=== PATIENT | female | born 1950 | race Caucasian/White ===

== ENCOUNTER 2021-03-12 21:27 | Inpatient (IN) | payer MEDICARE, SELFPAY ==
[2021-03-12] VITALS (9 sets, daily range): BP systolic 116–183; BP diastolic 69–126; PULSE 90–125; RESP 14–28; TEMP 34.9–35.4; O2SAT 96–100; BMI 29.9
--- NOTE | 2021-03-12 21:40 | EKG12_ITS ---
Test Reason : ARREST Blood Pressure : / mmHG Vent. Rate : 114 BPM Atrial Rate : 114 BPM P-R Int : 148 ms QRS Dur : 094 ms QT Int : 354 ms P-R-T Axes : 087 032 240 degrees QTc Int : 487 ms Sinus tachycardia with occasional Premature ventricular complexes Indeterminate axis Marked ST abnormality, possible inferior subendocardial injury Marked ST abnormality, possible anterolateral subendocardial injury Abnormal ECG Confirmed by MEAGHAN ROSS, MARY ([id number]), manager editorial MEL MURGUIA ([id number]) on 03/16/2021 1:45:16 PM Referred By: TRACY Confirmed By:MARY HARDING MD
[2021-03-12 21:58] LABS: Bacteria 0 SEEN /hpf (None Seen); Mucous, Urine 0 SEEN /hpf (<or=2+); White Blood Cells 0 SEEN /hpf (0-5)
[2021-03-12 22:01] LABS: Glucose, Dipstick Normal (Normal); Ketone-Dipstick Negative (Negative); Leukocyte Esterase-Dipstick Negative /ul (Negative); Nitrite-Dipstick Negative (Negative); Occult Blood-Urine 150 /ul (Negative); Protein-Dipstick 100 mg/dl (Negative); Specific Gravity, Urine 1.025 (1.002-1.030); Urine Bilirubin Dipstick Negative (Negative); Urine Clarity Sl. Cloudy (Clear); Urine Urobilinogen Normal (Normal)
--- NOTE | 2021-03-12 22:01 | CM.ED ---
SOCIAL WORK Code Bob Responded to code. Patient's son and present in waiting room and escorted to room. Emotional support provided. Kamila Karimi, FLORAL CLERK, PELLETIZER TENDER
[2021-03-12 22:05] LABS: Hematocrit 39.1 % (37-47); Hemoglobin 12.3 g/dL (12.0-15.0); Mean Corp Hgb Conc 31.5 g/dL (32-36); Mean Corpuscular Volume 95.4 fL (81-99); POSITIVE MORPHOLOGY YES; Platelet Count 201 K/mm3 (150-450); RBC Distribution Width CV 13.5 % (11.6-14.6); RBC Distribution Width SD 47.8 fl (35.1-43.9); White Blood Count 9.3 K/mm3 (4.4-11.0)
[2021-03-12 22:07] LABS: Color, Urine YELLOW (Yellow)
[2021-03-12 22:08] LABS: Amorphous Sediment 1+ URATE; Red Blood Cells-Urine 25-50 SEEN /hpf (0-5); Squamous Epithelial Cells - UA 0-5 SEEN /hpf (5-10)
[2021-03-12] MEDS: Propofol 10MG/Ml 1,000 MG/100 ML Bottle 4.9 MG CONT INF (22:08)
[2021-03-12 22:11] LABS: International Normalized Ratio 1.1
[2021-03-12 22:12] LABS: Partial Thromboplast Time 35.2 Seconds (24.1-36.2)
[2021-03-12 22:17] LABS: ALB/GLOB Ratio 1.1 RATIO (0.9-2.4); AST(SGOT) 231 U/L (15-37); Alanine Aminotransfer ALT/SGPT 218 U/L (13-56); Albumin, Serum 3.5 g/dL (3.2-5.0); Alkaline Phosphatase 72 U/L (45-117); Anion Gap 16 (5-15); BUN 18 mg/dL (7-18); BUN/Creat Ratio 12.6 RATIO (10-20); Calcium,Total 8.9 mg/dL (8.5-10.1); Chloride 105 mmol/L (98-107); Creatinine, Serum 1.43 mg/dL (0.55-1.02); EST Glomerular Filtration Rate 38 mL/min (>60); Est Glom Filt Rate - Afr Amer 47 mL/min (>60); Estimated Creatinine Clearance 32.47 ml/min; Globulin 3.3 g/dL (2.2-4.2); Glucose 260 mg/dL (74-106); Potassium 2.9 mmol/L (3.5-5.1); Protein, Total 6.8 g/dL (6.4-8.2); Sodium Level 141 mmol/L (136-145)
[2021-03-12 22:22] LABS: Differential Indicated MANUAL DIFF
[2021-03-12 22:26] LABS: Neutrophil-Band 18 % (0-5); Neutrophil-Segmented 22 % (47-70); Total Cells Counted 100 (MANUAL DIFF)
[2021-03-12 22:27] LABS: Eosinophil 2 % (0-5); Lymphocyte 48 % (19-41); Metamyelocyte 1 % (0-1); Monocyte 4 % (0-10); Myelocyte 4 % (0-0); Promyelocyte 1 % (0-0)
[2021-03-12 22:29] LABS: Absolute Lymphocyte Count 4.44 X10^3/uL (0.83-4.51); Absolute Neutrophil Count 3.7 X10^3/uL (2.0-7.7)
[2021-03-12 22:31] LABS: Allen Test Positive; Base Excess -8 mmol/L (-2 to +2); Bicarbonate 19.3 mmol/L (22-26); Blood Gas Specimen Type ART; FI02 80; Mode AC; O2 Delivery Device Adult Vent; PEEP 5; PO2 101 mmHG (75-100); RR 14; SITE L Radial; SO2 97 % (95-99); Total Carbon Dioxide 21 mmol/L; Vt 480; pCO2 43.1 mmHg (35-45); pH 7.26 (7.35-7.45)
[2021-03-12 22:32] LABS: Platelet Estimate ADEQUATE (ADEQ); Reactive Lymphocyte 1+
[2021-03-12 22:33] LABS: Red Cell Morphology NORM C+C NORMAL (NORM C&C)
[2021-03-12 22:41] LABS: Lactic Acid 8.3 mmol/L (0.4-1.9)
--- NOTE | 2021-03-12 22:51 | CT_ITS ---
STUDY: CT BRAIN WITHOUT CONTRAST REASON FOR EXAM: Female, 71 years old. Altered mental status RADIATION DOSAGE (If Supplied By Facility): CTDIvol = ( 44.99 ) mGy, DLP = ( 796.11 ) mGycm TECHNIQUE: Transaxial CT imaging of the brain was performed without administration of intravenous contrast material. Individualized dose optimization techniques were used for this CT. COMPARISON: No relevant priors. FINDINGS: Normal soft tissue structures. Normal calvarium. There is mild cerebral atrophy with widening of the extra-axial spaces and ventricular dilatation. There are areas of decreased attenuation within the white matter tracts of the supratentorial brain, consistent with microvascular disease changes. Normal basal ganglia and thalami. Normal brainstem. Normal cerebellum. There is no intracranial hemorrhage. There are no findings of an acute ischemic infarction. Partially empty sella Normal visualized paranasal sinuses. CT/Brain/Head without Contrast IMPRESSION: Chronic involutional changes of the brain. Electronically Signed: Jeffry Fan DO at 23:02 EDT Tel , Service support ,
--- NOTE | 2021-03-12 23:00 | RAD_ITS ---
STUDY: X-RAY CHEST REASON FOR EXAM: Female, 71 years old. Intubation TECHNIQUE: Single AP portable view of the chest. COMPARISON: None. FINDINGS: There is hyperinflation of the lungs consistent with chronic obstructive lung disease (COPD). Patchy airspace disease in the right upper lobe suggesting infection. No consolidation or effusions. ET tube terminating 4 cm from the fatoumata. Enteric tube in the stomach RAD/Chest 1 View (Portable) IMPRESSION: ET tube and enteric tube are noted and adequately positioned. Patchy infiltrate in the right upper lobe suggesting infection Electronically Signed: Jeffry Fan DO at 23:46 EDT Tel , Service support ,
--- NOTE | 2021-03-12 23:54 | EX.ED.CRITCA ---
HPI History of Present Illness Chief Complaint: CPR Informant: family and EMS Limited: coma Onset/Context/Timing Onset: Today Context: Sudden Onset Timing: Continuous Mechanism/Context: Yes unknown and Yes other Narrative Narrative: Patient presents after cardiac arrest that occurred tonight. Patient was planting keen in her son's garden tonight when she collapsed. Son called 911 immediately and started CPR. EMS was able to resuscitate the patient had the patient had a pulse and good blood pressure upon arrival to the emergency department. Patient was still unresponsive and nonverbal on arrival. Prior similar symptoms: No PFSH PFSH no medical history (Per ) Home Medications NK 03/12/21 [History Last Taken Unknown] Allergy/AdvReac Type Severity Reaction Status Date / Time codeine Allergy Other Verified 03/12/21 21:33 no surgical history (Per ) Social History Smoking Status: Never smoker ROS ROS ED Review of Systems ROS Unobtainable: due to endotracheal tube and due to mental status EXAM Physical Exam Const Vital Signs: 03/12/21 21:28 03/12/21 21:29 03/12/21 21:34 Temperature 95.8 F L Temperature Source Temporal Pulse Rate 108 H 125 H Respiratory Rate 28 H 24 H Respiratory Effort Agonal Respiratory Depth Shallow Respiratory Pattern Blood Pressure 183/117 H Blood Pressure Mean 139 Pulse Ox 100 100 Oxygen Delivery Method Ambu-Bag Oxygen Flow Rate (L/min) 15 Fraction of Inspired Oxygen (FIO2) 80 03/12/21 21:53 03/12/21 21:58 03/12/21 22:13 Temperature 95.5 F L Temperature Source Core Pulse Rate 90 Respiratory Rate 25 H Respiratory Effort Agonal Respiratory Depth Respiratory Pattern Apnea Blood Pressure 164/73 H Blood Pressure Mean 103 Pulse Ox 100 100 Oxygen Delivery Method Mechanical Ventilator Mechanical Ventilator Oxygen Flow Rate (L/min) Fraction of Inspired Oxygen (FIO2) 03/12/21 22:28 03/12/21 23:00 03/12/21 23:16 Temperature Temperature Source Pulse Rate 97 98 98 Respiratory Rate 18 18 24 H Respiratory Effort Respiratory Depth Respiratory Pattern Blood Pressure 153/69 H 116/74 Blood Pressure Mean 97 88 Pulse Ox 100 100 96 Oxygen Delivery Method Mechanical Ventilator Mechanical Ventilator Oxygen Flow Rate (L/min) Fraction of Inspired Oxygen (FIO2) 80 03/12/21 23:30 03/12/21 23:42 Temperature 94.9 F L Temperature Source Core Pulse Rate 100 Respiratory Rate 19 H Respiratory Effort Respiratory Depth Respiratory Pattern Blood Pressure 140/126 H 133/82 H Blood Pressure Mean 130 99 Pulse Ox 100 Oxygen Delivery Method Mechanical Ventilator Oxygen Flow Rate (L/min) Fraction of Inspired Oxygen (FIO2) Positive well nourished and well developed General Appearance ED: well developed HEENT normocephalic and atraumatic Neck no JVD Resp Resp Narrative: Breath sounds are equal bilaterally with mechanical ventilation. Cardio regular rate and regular rhythm GI non-distended Palpation: soft Neuro Luxor Coma Scale: document GCS findings None None None 3 Sensorium / Orientation: sedated on vent Skin Lesions: no lesions Rashes: no rashes MDM MDM MDM Narrative Medical decision making narrative: The I gel airway was removed. Patient was intubated with 7.5 ET tube without sedation using a glide scope. The tube was visualized passing through the cords. Breath sounds were equal bilaterally after intubation. There is good color change on end-tidal CO2 monitor. There is condensation in the tube. EKG was obtained. On my interpretation, it showed a sinus tachycardia with a rate of 114. There is ST depression in leads II, III, aVF, and V3 through V6. I was able to text this to the hvac maintenance technician. Since the patient was unconscious upon arrival, he does not feel the patient needs to go emergently to the [facility]. CT scan of the brain was obtained. There is no acute intracranial abnormality. This was interpreted by the radiologist and reviewed by myself. Portable 1 view chest x-ray was obtained. On my interpretation, lung sanchez showed right-sided infiltrate. This is likely from aspiration. There is normal cardiac silhouette. Bony thorax is normal. Radiologist also interpreted the x-ray and agrees. CBC shows a normal white blood cell count however, there were 18 bands and 48 lymphocytes. PT with INR and PTT were normal. Comprehensive metabolic profile showed a hypokalemia of 2.9. CO2 was 20. Creatinine was slightly elevated at 1.43. Anion gap was slightly elevated at 16. Lactate was elevated at 8.3. Troponin was elevated at 0.107. Urinalysis was essentially within normal limits. Patient was started on Unasyn. Patient was also started on fentanyl and propofol drips. Case was discussed with the hospitalist. He will admit the patient to ICU. Family understood and was agreeable with the plan. All questions were answered. Lab Data Attestation: I reviewed the patient's lab results. Labs: Laboratory Results - last 24 hr 03/12/21 03/12/21 03/12/21 21:30 21:30 21:30 WBC 9.3 RBC 4.10 L Hgb 12.3 Hct 39.1 MCV 95.4 MCH 30.0 MCHC 31.5 L RDW Std Deviation 47.8 H RDW Coeff of [place] 13.5 Plt Count 201 MPV 11.0 Neut % (Auto) Not Reportable Absolute Neuts (auto) 3.7 Absolute Lymphs (auto) 4.44 Total Counted 100 Neutrophils % (Manual) 22 L Band Neutrophils % 18 H Lymphocytes % (Manual) 48 H Monocytes % (Manual) 4 Eosinophils % (Manual) 2 Metamyelocytes % 1 Myelocytes % 4 H Promyelocytes % 1 H Diff Path Review May foll Reactive Lymphocytes 1+ Platelet Estimate ADEQUATE RBC Morphology NORM C+C PT 14.0 INR 1.1 APTT 35.2 Sodium 141 Potassium 2.9 L Chloride 105 Carbon Dioxide 20.0 L Anion Gap 16 H BUN 18 Creatinine 1.43 H Estim Creat Clear Calc 32.47 Est GFR (MDRD) Af Amer 47 L Est GFR (MDRD) Non-Af 38 L BUN/Creatinine Ratio 12.6 Glucose 260 H Lactic Acid Calcium 8.9 Total Bilirubin 0.40 AST 231 H ALT 218 H Alkaline Phosphatase 72 Troponin I 0.107 H Total Protein 6.8 Albumin 3.5 Globulin 3.3 Albumin/Globulin Ratio 1.1 Urine Color Urine Clarity Urine pH Ur Specific [place] Urine Protein Urine Glucose (UA) Urine Ketones Urine Occult Blood Urine Nitrite Urine Bilirubin Urine Urobilinogen Ur Leukocyte Esterase Urine RBC Urine WBC Ur Squamous Epith Cells Amorphous Sediment Urine Bacteria Urine Mucus 03/12/21 03/12/21 21:50 22:00 WBC RBC Hgb Hct MCV MCH MCHC RDW Std Deviation RDW Coeff of [place] Plt Count MPV Neut % (Auto) Absolute Neuts (auto) Absolute Lymphs (auto) Total Counted Neutrophils % (Manual) Band Neutrophils % Lymphocytes % (Manual) Monocytes % (Manual) Eosinophils % (Manual) Metamyelocytes % Myelocytes % Promyelocytes % Diff Path Review Reactive Lymphocytes Platelet Estimate RBC Morphology PT INR APTT Sodium Potassium Chloride Carbon Dioxide Anion Gap BUN Creatinine Estim Creat Clear Calc Est GFR (MDRD) Af Amer Est GFR (MDRD) Non-Af BUN/Creatinine Ratio Glucose Lactic Acid 8.3 H* Calcium Total Bilirubin AST ALT Alkaline Phosphatase Troponin I Total Protein Albumin Globulin Albumin/Globulin Ratio Urine Color YELLOW Urine Clarity Sl. Cloudy Urine pH 5.0 Ur Specific [place] 1.025 Urine Protein 100 H Urine Glucose (UA) Normal Urine Ketones Negative Urine Occult Blood 150 H Urine Nitrite Negative Urine Bilirubin Negative Urine Urobilinogen Normal Ur Leukocyte Esterase Negative Urine RBC 25-50 SEEN Urine WBC 0 SEEN Ur Squamous Epith Cells 0-5 SEEN Amorphous Sediment 1+ URATE Urine Bacteria 0 SEEN Urine Mucus 0 SEEN ABG Data ABG results: ABG 03/12/21 22:25 Specimen Type ART Sample Site L Radial pH 7.26 L Bicarbonate Actual 19.3 L Total CO2 21 Base Excess -8 L O2 Saturation 97 O2 % 80 ABG pCO2 43.1 ABG pO2 101 H Tk Test Positive Respiration Rate 14 O2 Delivery Device Adult Vent Vent Mode AC Tidal Volume 480 POC PEEP 5 Radiography Chest X-Ray - ED: 1 View, Read by ED Physician, Read by Radiologist and Right Infiltrate Diagnostic Testing: Radiology Impression Brain CT 03/12/21 22:51 IMPRESSION: Chronic involutional changes of the brain. Electronically Signed: Jeffry Fan DO at 23:02 EDT Tel , Service support , Chest X-Ray 03/12/21 23:00 IMPRESSION: ET tube and enteric tube are noted and adequately positioned. Patchy infiltrate in the right upper lobe suggesting infection Electronically Signed: Jeffry Fan DO at 23:46 EDT Tel , Service support , EKG Initial EKG: Attestation: I personally reviewed and interpreted this EKG as follows: Interpretation: Sinus Tachycardia (114) and S-T Depression Prior EKG tracings: not available for review Treatment and Re-Evaluation Vital Sign Attestation:: Vital signs were reviewed prior to admission. Blood pressure remained stable. Patient is slightly tachycardic. Patient is attempting to breathe over the ventilator at 28 times per minute. Critical Care Time Critical Care Time: Yes Critical care time (excluding procedures): 30-74 minutes (42 minutes), Discussing w/Patient &/or Family/Appraiser Art, Discussing w/Consultants, Arranging Admission or Transfer and Performing Direct Patient Care at Bedside Discharge Plan Dx/Rx/DC Orders Clinical Impression: Cardiac arrest, Aspiration pneumonia, Lactic acidosis, Acute hypokalemia, Elevated troponin Disposition Disposition: Acute Care Hospital [facility]
[2021-03-13] VITALS (41 sets, daily range): BP systolic 91–154; BP diastolic 29–82; PULSE 67–106; RESP 14–28; TEMP 35.7–38.5; O2SAT 95–100; BMI 25.7
--- NOTE | 2021-03-13 00:22 | HP.PCM.HOS_ITS ---
HPI - General General Date of Admission: 03/13/21 Date of Service: 03/13/21 Chief Complaint: CPR. HPI Narrative SLIME WAGNER, is a 71 F with no significant past medical history presented to the emergency room by squad after she collapsed, found to have no pulse and CPR was initiated. At this time, patient is intubated and on mechanical ventilation and also she is sedated. She is not able to provide any history. Patient's family including , daughter and son were at the bedside. According to the patient's son, patient was gardening last evening and her normal health and her son asked her to get back to the house as it was started to rain. Son mentioned that he went inside and after around 5 minutes, dog barked and he went outside and he found his mom on the floor. Son started CPR and he called the squad. Upon squad arrival, patient had no pulse, CPR initiated and he was able to get her pulse back. Patient had no past medical history. She takes no medications at home. Currently, she is intubated, on mechanical ventilation. She is afebrile, blood pressure stable, heart rate stable, on mechanical ventilation. Routine blood work was remarkable for potassium of 2.9, creatinine of 1.43, blood glucose was 260. Lactic acid was 8.3. LFT revealed elevated liver transaminases. EKG revealed sinus tachycardia with PVCs, ST segment depression and T wave inversion on leads V3, V4 and V5, ST segment depression in leads II and III. Troponin is 0.107. CT scan brain showed no acute findings. Chest x- ray revealed right upper lobe haziness/patchy infiltrate. She is being admitted for acute respiratory failure after CPR, aspiration pneumonia, lactic acidosis, hypokalemia, abnormal EKG with abnormal cardiac enzymes. [facility], [facility] no medical history Home Medications NK 03/12/21 [History Last Taken Unknown] Allergy/AdvReac Type Severity Reaction Status Date / Time codeine Allergy Other Verified 03/12/21 21:33 no significant family history no surgical history Social History (Updated 03/13/21 @ 00:[address] Windy Yates MD) Smoking Status: Never smoker alcohol intake: never ROS Review of Systems ROS Unobtainable: due to endotracheal tube Vital Signs Vital Signs Vital Signs: 03/12/21 21:28 03/12/21 21:29 03/12/21 21:34 Temperature 95.8 F L Temperature Source Temporal Pulse Rate 108 H 125 H Respiratory Rate 28 H 24 H Respiratory Effort Agonal Respiratory Depth Shallow Respiratory Pattern Blood Pressure 183/117 H Blood Pressure Mean 139 Pulse Ox 100 100 Oxygen Delivery Method Ambu-Bag Oxygen Flow Rate (L/min) 15 Fraction of Inspired Oxygen (FIO2) 80 03/12/21 21:53 03/12/21 21:58 03/12/21 22:13 Temperature 95.5 F L Temperature Source Core Pulse Rate 90 Respiratory Rate 25 H Respiratory Effort Agonal Respiratory Depth Respiratory Pattern Apnea Blood Pressure 164/73 H Blood Pressure Mean 103 Pulse Ox 100 100 Oxygen Delivery Method Mechanical Ventilator Mechanical Ventilator Oxygen Flow Rate (L/min) Fraction of Inspired Oxygen (FIO2) 03/12/21 22:28 03/12/21 23:00 03/12/21 23:16 Temperature Temperature Source Pulse Rate 97 98 98 Respiratory Rate 18 18 24 H Respiratory Effort Respiratory Depth Respiratory Pattern Blood Pressure 153/69 H 116/74 Blood Pressure Mean 97 88 Pulse Ox 100 100 96 Oxygen Delivery Method Mechanical Ventilator Mechanical Ventilator Oxygen Flow Rate (L/min) Fraction of Inspired Oxygen (FIO2) 80 03/12/21 23:30 03/12/21 23:42 Temperature 94.9 F L Temperature Source Core Pulse Rate 100 Respiratory Rate 19 H Respiratory Effort Respiratory Depth Respiratory Pattern Blood Pressure 140/126 H 133/82 H Blood Pressure Mean 130 99 Pulse Ox 100 Oxygen Delivery Method Mechanical Ventilator Oxygen Flow Rate (L/min) Fraction of Inspired Oxygen (FIO2) Weight Weight: 180 lb Body Mass Index (BMI) 29.9 Physical Exam Const Constitutional Narrative: Sedated. General Appearance: intubated and patient mechanically ventilated HEENT normocephalic, moist oral mucous membranes and oropharynx normal Eyes PERRL and conjunctivae normal General Eye: normal appearance of both eyes Neck no lymphadenopathy, supple and no JVD Resp Resp Narrative: Decreased breath sounds bilateral, otherwise clear. Auscultation: clear to auscultation bilaterally; Negative for rales, rhonchi or wheezes Cardio regular rate, regular rhythm, S1 normal heart sound and S2 normal heart sound Cardio Narrative: Tachycardia. GI normal to inspection, nondistended, normoactive bowel sounds, soft to palpation, non-tender and hepatosplenomegaly Extremity normal to inspection, full ROM and no clubbing, cyanosis or edema Skin no rashes or lesions noted and skin turgor normal Neuro Neuro Narrative: Sedated, on mechanical ventilation. Moving all limbs. Comatose: corneal reflex present Psych Psych Narrative: Unable to assess, patient is sedated. Lab / Micro Data Result Diagrams: 03/12/21 21:30 03/12/21 21:30 Labs: Laboratory Results - last 24 hr 03/12/21 03/12/21 03/12/21 21:30 21:30 21:30 WBC 9.3 RBC 4.10 L Hgb 12.3 Hct 39.1 MCV 95.4 MCH 30.0 MCHC 31.5 L RDW Std Deviation 47.8 H RDW Coeff of [place] 13.5 Plt Count 201 MPV 11.0 Neut % (Auto) Not Reportable Absolute Neuts (auto) 3.7 Absolute Lymphs (auto) 4.44 Total Counted 100 Neutrophils % (Manual) 22 L Band Neutrophils % 18 H Lymphocytes % (Manual) 48 H Monocytes % (Manual) 4 Eosinophils % (Manual) 2 Metamyelocytes % 1 Myelocytes % 4 H Promyelocytes % 1 H Diff Path Review May foll Reactive Lymphocytes 1+ Platelet Estimate ADEQUATE RBC Morphology NORM C+C PT 14.0 INR 1.1 APTT 35.2 Sodium 141 Potassium 2.9 L Chloride 105 Carbon Dioxide 20.0 L Anion Gap 16 H BUN 18 Creatinine 1.43 H Estim Creat Clear Calc 32.47 Est GFR (MDRD) Af Amer 47 L Est GFR (MDRD) Non-Af 38 L BUN/Creatinine Ratio 12.6 Glucose 260 H Lactic Acid Calcium 8.9 Total Bilirubin 0.40 AST 231 H ALT 218 H Alkaline Phosphatase 72 Troponin I 0.107 H Total Protein 6.8 Albumin 3.5 Globulin 3.3 Albumin/Globulin Ratio 1.1 Urine Color Urine Clarity Urine pH Ur Specific [place] Urine Protein Urine Glucose (UA) Urine Ketones Urine Occult Blood Urine Nitrite Urine Bilirubin Urine Urobilinogen Ur Leukocyte Esterase Urine RBC Urine WBC Ur Squamous Epith Cells Amorphous Sediment Urine Bacteria Urine Mucus 03/12/21 03/12/21 21:50 22:00 WBC RBC Hgb Hct MCV MCH MCHC RDW Std Deviation RDW Coeff of [place] Plt Count MPV Neut % (Auto) Absolute Neuts (auto) Absolute Lymphs (auto) Total Counted Neutrophils % (Manual) Band Neutrophils % Lymphocytes % (Manual) Monocytes % (Manual) Eosinophils % (Manual) Metamyelocytes % Myelocytes % Promyelocytes % Diff Path Review Reactive Lymphocytes Platelet Estimate RBC Morphology PT INR APTT Sodium Potassium Chloride Carbon Dioxide Anion Gap BUN Creatinine Estim Creat Clear Calc Est GFR (MDRD) Af Amer Est GFR (MDRD) Non-Af BUN/Creatinine Ratio Glucose Lactic Acid 8.3 H* Calcium Total Bilirubin AST ALT Alkaline Phosphatase Troponin I Total Protein Albumin Globulin Albumin/Globulin Ratio Urine Color YELLOW Urine Clarity Sl. Cloudy Urine pH 5.0 Ur Specific [place] 1.025 Urine Protein 100 H Urine Glucose (UA) Normal Urine Ketones Negative Urine Occult Blood 150 H Urine Nitrite Negative Urine Bilirubin Negative Urine Urobilinogen Normal Ur Leukocyte Esterase Negative Urine RBC 25-50 SEEN Urine WBC 0 SEEN Ur Squamous Epith Cells 0-5 SEEN Amorphous Sediment 1+ URATE Urine Bacteria 0 SEEN Urine Mucus 0 SEEN ABG Data ABG results: ABG 03/12/21 22:25 Specimen Type ART Sample Site L Radial pH 7.26 L Bicarbonate Actual 19.3 L Total CO2 21 Base Excess -8 L O2 Saturation 97 O2 % 80 ABG pCO2 43.1 ABG pO2 101 H Tk Test Positive Respiration Rate 14 O2 Delivery Device Adult Vent Vent Mode AC Tidal Volume 480 POC PEEP [address] 03/12/21 22:51 IMPRESSION: Chronic involutional changes of the brain. Electronically Signed: Jeffry Fan DO at 23:02 EDT Tel , Service support , Chest X-Ray 03/12/21 23:00 IMPRESSION: ET tube and enteric tube are noted and adequately positioned. Patchy infiltrate in the right upper lobe suggesting infection Electronically Signed: Jeffry Fan DO at 23:46 EDT Tel , Service support , Assessment & Plan Assessment/Plan (1) Abnormal EKG: (2) Cardiac arrest: (3) Aspiration pneumonia: (4) Lactic acidosis: (5) Acute hypokalemia: (6) Elevated troponin: PLAN: This is a 71 years old female patient presented to the emergency room after she collapsed on the floor, went into asystole, status post CPR and she was found to have multiorgan failure probably due to cardiac event and found to have aspiration pneumonia, acute kidney injury, abnormal EKG with abnormal troponin. #1 status post CPR: Unclear reason for the cardiopulmonary arrest, probably due to cardiac event. EKG reviewed as above, does have new EKG changes, no old EKG to compare. Troponin is 0.107. Chest x-ray reviewed as above. Currently, patient is maintaining her blood pressure, on mechanical ventilation. Plan: Admit to ICU, complete bedrest, continue vent management per protocol, critical care monitoring, IV fluids, critical care consult, cardiology consult, 2D echocardiogram, repeat CBC and CMP tomorrow morning. #2 abnormal EKG/abnormal cardiac enzymes: EKG revealed sinus tachycardia with PVCs, ST segment depression and T wave inversions in leads V3, V4 and V5, ST segment depression in leads II and III. Patient had no cardiac history, no di abetes or hypertension. Troponin is 0.107. Plan: Cardiac monitoring, serial cardiac enzymes, repeat EKG tomorrow morning, 2D echocardiogram, rectal aspirin, cardiology consult. #3 aspiration pneumonia: Chest x-ray reviewed. Reportedly, patient vomited during the CPR and probably she aspirated. She is afebrile, no leukocytosis. Plan: Start IV Unasyn, aspiration precautions. #4 acute kidney injury: Due to cardiac arrest. Plan: IV fluids, input output chart, repeat BMP tomorrow morning. #5 lactic acidosis: It is probably due to tissue hypoperfusion and hypoxemia. I doubt sepsis or severe sepsis. Plan for IV fluids, blood culture, repeat lactic acid in 3 hours. #6 elevated LFT: Likely due to shock liver due to tissue hypoperfusion. Plan to monitor, repeat CMP tomorrow morning. #7 hypokalemia: Replace with potassium chloride IV, check serum magnesium. #8 DVT prophylaxis: Subcu heparin. This note was generated with Sync[employer] dictation software. It may contain incorrect words, spelling, and punctuation that were not noted in checking the note before signing. Visit Charges Inpatient E&M: 84787 Init Hosp L3
--- NOTE | 2021-03-13 00:44 | ECHOCS_ITS ---
Reason For Study: Abn EKG Procedure This was a 2D Doppler, Color Flow transthoracic echocardiogram. Contrast injection was performed. Exam performed portable in ICU/CCU. Left Ventricle Mildly dilated left ventricle. The estimated ejection fraction is EF 40% %. Right Ventricle Normal right ventricle. Normal systolic function. Atria Normal left atrium. Normal right atrium. Mitral Valve The mitral valve is structurally normal. No prolapse or stenosis seen. Mild (1+) mitral valve insufficiency. Tricuspid Valve Normal tricuspid valve. Mild tricuspid valve insufficiency. Aortic Valve Normal aortic valve. Pulmonic Valve The pulmonic valve is not well visualized. Great Vessels Normal aortic root. Pericardium/Pleural Trivial pericardial effusion. Medication Diluted definity 2ml given slow IV push to enhance endocardial definition. MMode/2D Measurements & Calculations LVIDd: 4.1 cm IVSd: 1.1 cm Ao root diam: 2.6 cm LVIDs: 3.3 cm LVPWd: 1.1 cm RVDd: 3.1 cm FS: 20.6 % LAV(MOD-bp): 26.0 ml LVAd ap4: 26.7 cm2 SV(MOD-sp4): 33.7 ml LAV(MOD-bp) Indexed: 13.7 ml/m2 LVLd ap4: 6.9 cm LAV(MOD-sp2): 33.1 ml EDV(MOD-sp4): 83.5 ml LAV(MOD-sp4): 19.2 ml EDV(sp4-el): 87.1 ml LVAs ap4: 19.5 cm2 LVLs ap4: 6.2 cm ESV(MOD-sp4): 49.8 ml ESV(sp4-el): 52.2 ml EF(MOD-sp4): 40.3 % EF(sp4-el): 40.1 % SV(sp4-el): 35.0 ml LA A4 area: 10.0 cm2 LA dimension(2D): 3.8 cm RA A4 area: 11.1 cm2 Doppler Measurements & Calculations MV E max jonn: 50.5 cm/sec Lat Peak E' Jonn: 3.7 cm/sec Med Peak E' Jonn: 3.0 cm/sec MV A max jonn: 94.1 cm/sec E/E' lat: 13.5 E/E' med: 17.0 MV E/A: 0.54 Ao V2 max: 119.2 cm/sec LV V1 max: 84.1 cm/sec PA V2 max: 76.6 cm/sec Ao max P.7 mmHg LV V1 max P.8 mmHg Ao V2 mean: 85.5 cm/sec Ao mean P.2 mmHg Ao V2 VTI: 22.6 cm TR max jonn: 224.6 cm/sec TR max P.2 mmHg ECHO/Echo Complete W/ Contrast Interpretation Summary The estimated ejection fraction is EF 40% %. Infero-lateral Hypokinesia Ordering Physician: Windy Yates Referring Physician: Krishan Evans Performed By: Abbey Hernández, QUEENIE, RVT
[2021-03-13] MEDS: Aspirin 300 MG Suppository RC (02:01)
[2021-03-13] MEDS: 0.9% Normal Saline 1,000 ML 100 ML IV (02:01)
[2021-03-13 02:02] LABS: Reflex Lactate? Y
[2021-03-13 02:18] LABS: Cholesterol 240 mg/dL (200); High Density Lipoprotein 57 mg/dL; Magnesium 1.9 mg/dL (1.6-2.6); Thyroid Stim Hormone (TSH) 2.63 uIU/mL (0.358-3.74); Triglycerides 141 mg/dL; Very Low Density Lipoprotein 28 mg/dL (5-40)
[2021-03-13 04:22] LABS: Absolute Lymphocyte Count 0.22 X10^3/uL (0.83-4.51); Basophil# 0.01 X10^3/uL; Basophil% 0.2 % (0-1); Hemoglobin 9.1 g/dL (12.0-15.0); Lymphocyte # 0.22 X10^3/ul (0.83-4.51); Lymphocyte % 3.9 % (19-41); Mean Corp Hgb Conc 31.4 g/dL (32-36); Mean Corpuscular Hgb 29.4 pg (27.0-32.0); Mean Corpuscular Volume 93.9 fL (81-99); Mean Platelet Vol. 10.4 fl (6.2-12.0); Monocyte# 0.34 X10^3/uL; NRBC Flagged by Analyzer 0 % (0-5); Neutrophil # 5.03 X10^3/uL (2.7-7.7); Neutrophil % 89.5 % (47-70); POSITIVE DIFFERENTIAL YES; Platelet Count 147 K/mm3 (150-450); RBC Distribution Width CV 13.6 % (11.6-14.6); RBC Distribution Width SD 46.8 fl (35.1-43.9); Red Blood Count 3.09 M/mm3 (4.2-5.4); White Blood Count 5.6 K/mm3 (4.4-11.0)
[2021-03-13 04:24] LABS: Differential Indicated SCAN CRITERIA MET
[2021-03-13 05:08] LABS: Lactic Acid 4.9 mmol/L (0.4-1.9)
[2021-03-13 05:09] LABS: ALB/GLOB Ratio 1.2 RATIO (0.9-2.4); AST(SGOT) 164 U/L (15-37); Alanine Aminotransfer ALT/SGPT 136 U/L (13-56); Albumin, Serum 2.2 g/dL (3.2-5.0); Alkaline Phosphatase 41 U/L (45-117); Anion Gap 8 (5-15); BUN 14 mg/dL (7-18); BUN/Creat Ratio 27.8 RATIO (10-20); Calcium,Total 5.6 mg/dL (8.5-10.1); Chloride 122 mmol/L (98-107); EST Glomerular Filtration Rate 128 mL/min (>60); Est Glom Filt Rate - Afr Amer 155 mL/min (>60); Estimated Creatinine Clearance 44.56 ml/min; Globulin 1.9 g/dL (2.2-4.2); Glucose 121 mg/dL (74-106); Potassium 2.3 mmol/L (3.5-5.1); Protein, Total 4.1 g/dL (6.4-8.2); Sodium Level 149 mmol/L (136-145)
[2021-03-13 05:26] LABS: Differential Comment SCANNED
--- NOTE | 2021-03-13 05:55 | EKG12_ITS ---
Test Reason : AM EKG Blood Pressure : / mmHG Vent. Rate : 074 BPM Atrial Rate : 074 BPM P-R Int : 134 ms QRS Dur : 084 ms QT Int : 484 ms P-R-T Axes : 075 067 183 degrees QTc Int : 537 ms Normal sinus rhythm ST & T wave abnormality, consider inferior ischemia ST & T wave abnormality, consider anterolateral ischemia Prolonged QT Abnormal ECG Confirmed by JEANIE ROSS, ELISABET ([id number]), society editor MLE MURGUIA ([id number]) on 03/17/2021 1:16:21 PM Referred By: WAN Confirmed By:ELISABET WAER MD
[2021-03-13] MEDS: Ondansetron 4 MG/2 ML Vial IV (06:22)
[2021-03-13] MEDS: Heparin Injection (Vial) 5,000 UNIT/ML VIAL 5000 UNIT SC ×3 (06:24→22:15)
--- NOTE | 2021-03-13 06:25 | NURSING ---
While this RN at bedside administering AM meds, pt began to vomit around ETT; face and mouth cleaned, gown changed; pt began to raise both arms and grind teeth on ETT and then proceeded into having full tonic/clonic seizure activity; called to bedside, order received to give 2mg Ativan STAT IVP, LifePak monitor applied to pt as HR climbs to 150; FiO2 increased to 100% by at end of seizure d/t p.ox dropping into 70s. Pt postictal, repeat EKG obtained.
--- NOTE | 2021-03-13 06:43 | TELEMED_ITS ---
[facility] Telemed has confirmed receipt of a request for visit. This document confirms receipt of the order initiating the consult. To find the results of the consultation, please view the patient's reports for the scanned Telemed Consult.
--- NOTE | 2021-03-13 06:44 | EKG12_ITS ---
Test Reason : RHYTHM CHANGE Blood Pressure : / mmHG Vent. Rate : 099 BPM Atrial Rate : 099 BPM P-R Int : 144 ms QRS Dur : 092 ms QT Int : 384 ms P-R-T Axes : 079 065 194 degrees QTc Int : 492 ms Normal sinus rhythm ST & T wave abnormality, consider inferior ischemia ST & T wave abnormality, consider anterolateral ischemia Prolonged QT Abnormal ECG When compared with ECG of 13-MAR-2021 05:23, MANUAL COMPARISON REQUIRED, DATA IS UNCONFIRMED Confirmed by MEAGHAN ROSS, MARY ([id number]), commercial production editor MEL MURGUIA ([id number]) on 03/18/2021 12:45:49 PM Referred By: GALILEO Confirmed By:MARY HARDING MD
[2021-03-13] MEDS: LORazepam 2 MG/ML Syringe IV (06:46)
--- NOTE | 2021-03-13 06:50 | CON.PCM.CC_ITS ---
Assessment & Plan Assessment/Plan (1) Acute respiratory failure: PLAN: RECOMMENDATIONS: 1. Continue patient on assist control mode of mechanical ventilation and wean FiO2 to maintain oxygen saturations at or above 90%. 2. Maintain seizure precautions along with as needed Ativan. 3. Obtain EEG and neurology consultation. 4. Obtain repeat arterial blood gas and sputum culture. 5. Continue antimicrobials. 6. Echocardiogram is pending. Continue to trend troponins. 7. Discontinue normal saline and transition to D5W. 8. Aggressive potassium repletion. 9. Continue to avoid sedating medications. IMPRESSIONS: 1. Acute hypoxemic respiratory failure status post cardiac arrest The patient suffered an out of hospital cardiac arrest with bystander CPR with return of spontaneous circulation achieved while in route to the hospital. The patient was emergently intubated as a consequence of the aforementioned. However, there is concern for the interval development of aspiration pneumonia. Accordingly, the patient will be continued on antimicrobials along with invasive mechanical ventilatory support. Plan to wean FiO2 to maintain oxygen saturations at or above 90%. Cardiology consultation along with echocardiogram is pending. 2. Encephalopathy/new onset seizures Initial concern for possible anoxic brain injury. The patient did demonstrate generalized tonic-clonic seizure activity this morning, which was treated with Ativan. EEG is pending. The patient will also be evaluated by neurology. Continue to hold all sedating medications for now. 3. Aspiration pneumonia The patient was noted by EMS to have possibly aspirated. In addition, the patient also had a witnessed aspiration event in the ICU. There is an infiltrate in the patient's right upper lobe, concerning for aspiration pneumonia. Plan to continue antimicrobials as ordered. Will obtain sputum culture as well. 4. Acute kidney injury Likely prerenal in etiology with ischemic ATN secondary to the patient's acute presenting event. Plan to continue current supportive measures. Continue to monitor urine output for now. No current indication for renal replacement therapy. 5. Acute liver injury Likely related to the patient's acute presenting event. Coags are within normal limits. Continue to monitor liver function for now. 6. Hypernatremia/hypokalemia Electrolyte repletion as ordered. Recheck levels in the morning. Plan to transition the patient from normal saline to D5W with potassium supplementation. TIME: 48 minutes of critical care time, independent of procedures, was spent addressing the patient's acute hypoxemic respiratory failure status post cardiac arrest, encephalopathy, new onset seizures, aspiration pneumonia, acute kidney and liver injury, review of all data and collaboration with the care team. ([id number]) HPI Consult Data Date of Consult: 03/13/21 HPI Narrative Reason for Consultation: Acute respiratory failure status post cardiac arrest HPI Narrative: The patient is a 71-year-old female, with a history as outlined below, who presented to the emergency department on March 12 via EMS after she sustained a witnessed cardiac arrest with bystander CPR provided. On EMS arriv al, emesis was noted in the patient's airway. The patient did receive several rounds of epinephrine in the field by EMS. Return of spontaneous circulation was achieved while in route to the hospital. On presentation to the hospital, the patient was noted to be hypothermic, hypertensive, tachycardic and tachypneic. Initial laboratory evaluation revealed a normal white blood cell count. However, 18% band neutrophils were noted on the differential. Coagulation profile was within normal limits. Initial arterial blood gas revealed a pH of 7.26, PCO2 of 43 and PO2 of 101. Chemistry profile was notable for a potassium of 2.9, bicarbonate of 20, anion gap of 16 and creatinine of 1.43. Lactate was elevated to 8.3. AST and ALT were increased to 231 and 218, respectively. The patient did have a troponin of 6.7. On arrival to the emergency department, the patient's eye gel which was placed by EMS was removed and the patient was emergently intubated. The patient was noted to have ST depression in leads II, III, aVF and across the precordial leads on EKG. Cardiology was contacted. CT head revealed chronic involutional changes of the brain. Chest x-ray revealed a patchy infiltrate in the right upper lobe. The patient did initially receive supplemental IV fluid hydration and was placed on antimicrobials. She was subsequently admitted to the medical intensive care unit. Overnight, the patient remained nonresponsive. Therefore, the patient's propofol was subsequently discontinued. However, despite the aforementioned, the patient remained nonresponsive. This morning, the patient's fentanyl was completely discontinued. At approximately 0630 this morning the patient was noted to have multiple episodes of emesis by nursing staff. She was also noted to have roving eye movements and a short time later experienced a generalized tonic-clonic seizure. The patient did become hypoxemic during this episode requiring an escalation in her FiO2. 2 mg of IV Ativan was administered. [facility] Home Medications NK 03/12/21 [History Last Taken Unknown] Allergy/AdvReac Type Severity Reaction Status Date / Time codeine Allergy Other Verified 03/12/21 21:33 Social History (Updated 03/13/21 @ 00:[address] Windy Yates MD) Smoking Status: Never smoker alcohol intake: never ROS Review of Systems ROS Unobtainable: due to encephalopathy and due to endotracheal tube Physical Exam Const General Appearance: intubated and patient mechanically ventilated Orientation / Consciousness: comatose and obtunded HEENT normocephalic and head/scalp atraumatic Mouth: endotracheal tube in place and OG tube in place Eyes no scleral icterus Pupil: sluggish Neck supple General: trachea midline Resp Effort and Inspection: tachypneic Auscultation: Negative for rales, rhonchi or wheezes Cardio S1 normal heart sound and S2 normal heart sound Rate: tachycardic Heart Sounds: Negative for murmur GI soft to palpation Auscultation: hypoactive bowel sounds Extremity no clubbing, cyanosis or edema Skin no rashes or lesions noted Neuro Sensorium / Orientation: obtunded Comatose: corneal reflex present; Negative for response to noxious stimuli present Lab / Micro Data Result Diagrams: 03/13/21 04:15 03/13/21 04:15 Labs: Laboratory Results - last 24 hr 03/12/21 03/12/21 03/12/21 21:30 21:30 21:30 WBC 9.3 RBC 4.10 L Hgb 12.3 Hct 39.1 MCV 95.4 MCH 30.0 MCHC 31.5 L RDW Std Deviation 47.8 H RDW Coeff of [place] 13.5 Plt Count 201 MPV 11.0 Immature Gran % (Auto) Neut % (Auto) Not Reportable Lymph % (Auto) [place] % (Auto) Eos % (Auto) Baso % (Auto) Absolute Neuts (auto) 3.7 Absolute Lymphs (auto) 4.44 Total Counted 100 Neutrophils % (Manual) 22 L Band Neutrophils % 18 H Lymphocytes % (Manual) 48 H Monocytes % (Manual) 4 Eosinophils % (Manual) 2 Metamyelocytes % 1 Myelocytes % 4 H Promyelocytes % 1 H Nucleated RBC % Differential Comment Diff Path Review May foll Reactive Lymphocytes 1+ Platelet Estimate ADEQUATE RBC Morphology NORM C+C PT 14.0 INR 1.1 APTT 35.2 Sodium 141 Potassium 2.9 L Chloride 105 Carbon Dioxide 20.0 L Anion Gap 16 H BUN 18 Creatinine 1.43 H Estim Creat Clear Calc 32.47 Est GFR (MDRD) Af Amer 47 L Est GFR (MDRD) Non-Af 38 L BUN/Creatinine Ratio 12.6 Glucose 260 H Lactic Acid Calcium 8.9 Magnesium Total Bilirubin 0.40 AST 231 H ALT 218 H Alkaline Phosphatase 72 Troponin I 0.107 H Total Protein 6.8 Albumin 3.5 Globulin 3.3 Albumin/Globulin Ratio 1.1 Triglycerides Cholesterol LDL Cholesterol VLDL Cholesterol HDL Cholesterol TSH Urine Color Urine Clarity Urine pH Ur Specific [place] Urine Protein Urine Glucose (UA) Urine Ketones Urine Occult Blood Urine Nitrite Urine Bilirubin Urine Urobilinogen Ur Leukocyte Esterase Urine RBC Urine WBC Ur Squamous Epith Cells Amorphous Sediment Urine Bacteria Urine Mucus 03/12/21 03/12/21 03/13/21 21:50 22:00 01:30 WBC RBC Hgb Hct MCV MCH MCHC RDW Std Deviation RDW Coeff of [place] Plt Count MPV Immature Gran % (Auto) Neut % (Auto) Lymph % (Auto) [place] % (Auto) Eos % (Auto) Baso % (Auto) Absolute Neuts (auto) Absolute Lymphs (auto) Total Counted Neutrophils % (Manual) Band Neutrophils % Lymphocytes % (Manual) Monocytes % (Manual) Eosinophils % (Manual) Metamyelocytes % Myelocytes % Promyelocytes % Nucleated RBC % Differential Comment Diff Path Review Reactive Lymphocytes Platelet Estimate RBC Morphology PT INR APTT Sodium Potassium Chloride Carbon Dioxide Anion Gap BUN Creatinine Estim Creat Clear Calc Est GFR (MDRD) Af Amer Est GFR (MDRD) Non-Af BUN/Creatinine Ratio Glucose Lactic Acid 8.3 H* Calcium Magnesium 1.9 Total Bilirubin AST ALT Alkaline Phosphatase Troponin I 6.710 H* Total Protein Albumin Globulin Albumin/Globulin Ratio Triglycerides 141 Cholesterol 240 H LDL Cholesterol 155 H VLDL Cholesterol 28 HDL Cholesterol 57 TSH 2.63 Urine Color YELLOW Urine Clarity Sl. Cloudy Urine pH 5.0 Ur Specific [place] 1.025 Urine Protein 100 H Urine Glucose (UA) Normal Urine Ketones Negative Urine Occult Blood 150 H Urine Nitrite Negative Urine Bilirubin Negative Urine Urobilinogen Normal Ur Leukocyte Esterase Negative Urine RBC 25-50 SEEN Urine WBC 0 SEEN Ur Squamous Epith Cells 0-5 SEEN Amorphous Sediment 1+ URATE Urine Bacteria 0 SEEN Urine Mucus 0 SEEN 05/29/21 05/29/21 05/29/21 04:15 04:15 04:15 WBC 5.6 RBC 3.09 L Hgb 9.1 L Hct 29.0 L MCV 93.9 MCH 29.4 MCHC 31.4 L RDW Std Deviation 46.8 H RDW Coeff of [place] 13.6 Plt Count 147 L MPV 10.4 Immature Gran % (Auto) 0.400 Neut % (Auto) 89.5 H Lymph % (Auto) 3.9 L [place] % (Auto) 6.0 Eos % (Auto) 0.0 Baso % (Auto) 0.2 Absolute Neuts (auto) 5.0 Absolute Lymphs (auto) 0.22 L Total Counted Neutrophils % (Manual) Band Neutrophils % Lymphocytes % (Manual) Monocytes % (Manual) Eosinophils % (Manual) Metamyelocytes % Myelocytes % Promyelocytes % Nucleated RBC % 0 Differential Comment SCANNED Diff Path Review Reactive Lymphocytes Platelet Estimate RBC Morphology PT INR APTT Sodium 149 H Potassium 2.3 L* Chloride 122 H Carbon Dioxide 19.0 L Anion Gap 8 BUN 14 Creatinine 0.50 L Estim Creat Clear Calc 44.56 Est GFR (MDRD) Af Amer 155 Est GFR (MDRD) Non-Af 128 BUN/Creatinine Ratio 27.8 H Glucose 121 H Lactic Acid 4.9 H* Calcium 5.6 L* Magnesium Total Bilirubin 0.20 AST 164 H ALT 136 H Alkaline Phosphatase 41 L Troponin I Total Protein 4.1 L Albumin 2.2 L Globulin 1.9 L Albumin/Globulin Ratio 1.2 Triglycerides Cholesterol LDL Cholesterol VLDL Cholesterol HDL Cholesterol TSH Urine Color Urine Clarity Urine pH Ur Specific [place] Urine Protein Urine Glucose (UA) Urine Ketones Urine Occult Blood Urine Nitrite Urine Bilirubin Urine Urobilinogen Ur Leukocyte Esterase Urine RBC Urine WBC Ur Squamous Epith Cells Amorphous Sediment Urine Bacteria Urine Mucus ABG Data ABG results: ABG 03/12/21 22:25 Specimen Type ART Sample Site L Radial pH 7.26 L Bicarbonate Actual 19.3 L Total CO2 21 Base Excess -8 L O2 Saturation 97 O2 % 80 ABG pCO2 43.1 ABG pO2 101 H Tk Test Positive Respiration Rate 14 O2 Delivery Device Adult Vent Vent Mode AC Tidal Volume 480 POC PEEP [address] 03/12/21 22:51 IMPRESSION: Chronic involutional changes of the brain. Electronically Signed: Jeffry Fan DO at 23:02 EDT Tel , Service support , Chest X-Ray 03/12/21 23:00 IMPRESSION: ET tube and enteric tube are noted and adequately positioned. Patchy infiltrate in the right upper lobe suggesting infection Electronically Signed: Jeffry Fan DO at 23:46 EDT Tel , Service support , Charges/Coding Procedures Hospitalists Procedures: [id number] [facility] 1st Hr
--- NOTE | 2021-03-13 07:24 | NURSING ---
[facility] Teleneurology consult via monitor began, neuro assessment performed for neurologist to visualize; pt fully decerebrate posturing again w/painful stimuli to all limbs, weak corneal reflex demonstrated as well by touching sterile gauze to corneas. Neurologist assessment and full event history review completed.
[2021-03-13] MEDS: Potassium Chloride 10mEq/100mL 10 MEQ/100 ML IV.SOLN. 100 MEQ IV BOLUS ×8 (07:56→15:55)
[2021-03-13 08:21] LABS: Base Excess -6 mmol/L (-2 to +2); Bicarbonate 19.5 mmol/L (22-26); Blood Gas Specimen Type ART; FI02 50; Mode AC; O2 Delivery Device ET Tube; PEEP 5; PO2 75 mmHG (75-100); RR 14; SITE R Radial; SO2 94 % (95-99); Total Carbon Dioxide 21 mmol/L; Vt 450; pCO2 35.3 mmHg (35-45); pH 7.35 (7.35-7.45)
[2021-03-13 08:42] LABS: Hemoglobin A1c 5.6 % (3.8-5.6)
[2021-03-13] MEDS: Chlorhexidine 15 ML PO ×2 (09:11→22:16)
[2021-03-13] MEDS: Famotidine 200 MG/20 ML MDV 20 MG in 0.9% Normal Saline (Pres. free 8 ML 300 MG IV ×2 (09:11→22:15)
--- NOTE | 2021-03-13 12:51 | PN.HOSP_ITS ---
Subjective Subjective unresponsive Objective Data Objective Data Vital Signs: Vital Signs Temp Pulse Resp BP Pulse Ox 38.2 C H 81 20 H 119/49 L 100 03/13/21 12:00 03/13/21 12:00 03/13/21 12:00 03/13/21 12:00 03/13/21 12:00 Oxygen Flow Rate (L/min) 15 Oxygen Delivery Method Mechanical Ventilator Weight: 70.2 kg Body Mass Index (BMI) 25.7 Intake & Output: Intake and Output for Last 24 Hours 03/11/21 03/12/21 03/13/21 23:59 23:59 23:59 Intake Total 511.97 / 511.97 1863.86 / 1863.86 Output Total 885 / 885 Balance 511.97 / 511.97 978.86 / 978.86 Lab / Micro Data Result Diagrams: 03/13/21 04:15 03/13/21 04:15 Labs: Laboratory Results - last 24 hr 03/12/21 03/12/21 03/12/21 21:30 21:30 21:30 WBC 9.3 RBC 4.10 L Hgb 12.3 Hct 39.1 MCV 95.4 MCH 30.0 MCHC 31.5 L RDW Std Deviation 47.8 H RDW Coeff of [place] 13.5 Plt Count 201 MPV 11.0 Immature Gran % (Auto) Neut % (Auto) Not Reportable Lymph % (Auto) [place] % (Auto) Eos % (Auto) Baso % (Auto) Absolute Neuts (auto) 3.7 Absolute Lymphs (auto) 4.44 Total Counted 100 Neutrophils % (Manual) 22 L Band Neutrophils % 18 H Lymphocytes % (Manual) 48 H Monocytes % (Manual) 4 Eosinophils % (Manual) 2 Metamyelocytes % 1 Myelocytes % 4 H Promyelocytes % 1 H Nucleated RBC % Differential Comment Diff Path Review May foll Reactive Lymphocytes 1+ Platelet Estimate ADEQUATE RBC Morphology NORM C+C PT 14.0 INR 1.1 APTT 35.2 Sodium 141 Potassium 2.9 L Chloride 105 Carbon Dioxide 20.0 L Anion Gap 16 H BUN 18 Creatinine 1.43 H Estim Creat Clear Calc 32.47 Est GFR (MDRD) Af Amer 47 L Est GFR (MDRD) Non-Af 38 L BUN/Creatinine Ratio 12.6 Glucose 260 H Hemoglobin A1c Lactic Acid Calcium 8.9 Magnesium Total Bilirubin 0.40 AST 231 H ALT 218 H Alkaline Phosphatase 72 Troponin I 0.107 H Total Protein 6.8 Albumin 3.5 Globulin 3.3 Albumin/Globulin Ratio 1.1 Triglycerides Cholesterol LDL Cholesterol VLDL Cholesterol HDL Cholesterol TSH Urine Color Urine Clarity Urine pH Ur Specific [place] Urine Protein Urine Glucose (UA) Urine Ketones Urine Occult Blood Urine Nitrite Urine Bilirubin Urine Urobilinogen Ur Leukocyte Esterase Urine RBC Urine WBC Ur Squamous Epith Cells Amorphous Sediment Urine Bacteria Urine Mucus 03/12/21 03/12/21 03/13/21 21:50 22:00 01:30 WBC RBC Hgb Hct MCV MCH MCHC RDW Std Deviation RDW Coeff of [place] Plt Count MPV Immature Gran % (Auto) Neut % (Auto) Lymph % (Auto) [place] % (Auto) Eos % (Auto) Baso % (Auto) Absolute Neuts (auto) Absolute Lymphs (auto) Total Counted Neutrophils % (Manual) Band Neutrophils % Lymphocytes % (Manual) Monocytes % (Manual) Eosinophils % (Manual) Metamyelocytes % Myelocytes % Promyelocytes % Nucleated RBC % Differential Comment Diff Path Review Reactive Lymphocytes Platelet Estimate RBC Morphology PT INR APTT Sodium Potassium Chloride Carbon Dioxide Anion Gap BUN Creatinine Estim Creat Clear Calc Est GFR (MDRD) Af Amer Est GFR (MDRD) Non-Af BUN/Creatinine Ratio Glucose Hemoglobin A1c Lactic Acid 8.3 H* Calcium Magnesium 1.9 Total Bilirubin AST ALT Alkaline Phosphatase Troponin I 6.710 H* Total Protein Albumin Globulin Albumin/Globulin Ratio Triglycerides 141 Cholesterol 240 H LDL Cholesterol 155 H VLDL Cholesterol 28 HDL Cholesterol 57 TSH 2.63 Urine Color YELLOW Urine Clarity Sl. Cloudy Urine pH 5.0 Ur Specific [place] 1.025 Urine Protein 100 H Urine Glucose (UA) Normal Urine Ketones Negative Urine Occult Blood 150 H Urine Nitrite Negative Urine Bilirubin Negative Urine Urobilinogen Normal Ur Leukocyte Esterase Negative Urine RBC 25-50 SEEN Urine WBC 0 SEEN Ur Squamous Epith Cells 0-5 SEEN Amorphous Sediment 1+ URATE Urine Bacteria 0 SEEN Urine Mucus 0 SEEN 03/13/21 03/13/21 03/13/21 04:10 04:15 04:15 WBC 5.6 RBC 3.09 L Hgb 9.1 L Hct 29.0 L MCV 93.9 MCH 29.4 MCHC 31.4 L RDW Std Deviation 46.8 H RDW Coeff of [place] 13.6 Plt Count 147 L MPV 10.4 Immature Gran % (Auto) 0.400 Neut % (Auto) 89.5 H Lymph % (Auto) 3.9 L [place] % (Auto) 6.0 Eos % (Auto) 0.0 Baso % (Auto) 0.2 Absolute Neuts (auto) 5.0 Absolute Lymphs (auto) 0.22 L Total Counted Neutrophils % (Manual) Band Neutrophils % Lymphocytes % (Manual) Monocytes % (Manual) Eosinophils % (Manual) Metamyelocytes % Myelocytes % Promyelocytes % Nucleated RBC % 0 Differential Comment SCANNED Diff Path Review Reactive Lymphocytes Platelet Estimate RBC Morphology PT INR APTT Sodium Potassium Chloride Carbon Dioxide Anion Gap BUN Creatinine Estim Creat Clear Calc Est GFR (MDRD) Af Amer Est GFR (MDRD) Non-Af BUN/Creatinine Ratio Glucose Hemoglobin A1c 5.6 Lactic Acid Calcium Magnesium Total Bilirubin AST ALT Alkaline Phosphatase Troponin I 6.280 H* Total Protein Albumin Globulin Albumin/Globulin Ratio Triglycerides Cholesterol LDL Cholesterol VLDL Cholesterol HDL Cholesterol TSH Urine Color Urine Clarity Urine pH Ur Specific [place] Urine Protein Urine Glucose (UA) Urine Ketones Urine Occult Blood Urine Nitrite Urine Bilirubin Urine Urobilinogen Ur Leukocyte Esterase Urine RBC Urine WBC Ur Squamous Epith Cells Amorphous Sediment Urine Bacteria Urine Mucus 03/13/21 03/13/21 04:15 04:15 WBC RBC Hgb Hct MCV MCH MCHC RDW Std Deviation RDW Coeff of [place] Plt Count MPV Immature Gran % (Auto) Neut % (Auto) Lymph % (Auto) [place] % (Auto) Eos % (Auto) Baso % (Auto) Absolute Neuts (auto) Absolute Lymphs (auto) Total Counted Neutrophils % (Manual) Band Neutrophils % Lymphocytes % (Manual) Monocytes % (Manual) Eosinophils % (Manual) Metamyelocytes % Myelocytes % Promyelocytes % Nucleated RBC % Differential Comment Diff Path Review Reactive Lymphocytes Platelet Estimate RBC Morphology PT INR APTT Sodium 149 H Potassium 2.3 L* Chloride 122 H Carbon Dioxide 19.0 L Anion Gap 8 BUN 14 Creatinine 0.50 L Estim Creat Clear Calc 44.56 Est GFR (MDRD) Af Amer 155 Est GFR (MDRD) Non-Af 128 BUN/Creatinine Ratio 27.8 H Glucose 121 H Hemoglobin A1c Lactic Acid 4.9 H* Calcium 5.6 L* Magnesium Total Bilirubin 0.20 AST 164 H ALT 136 H Alkaline Phosphatase 41 L Troponin I Total Protein 4.1 L Albumin 2.2 L Globulin 1.9 L Albumin/Globulin Ratio 1.2 Triglycerides Cholesterol LDL Cholesterol VLDL Cholesterol HDL Cholesterol TSH Urine Color Urine Clarity Urine pH Ur Specific [place] Urine Protein Urine Glucose (UA) Urine Ketones Urine Occult Blood Urine Nitrite Urine Bilirubin Urine Urobilinogen Ur Leukocyte Esterase Urine RBC Urine WBC Ur Squamous Epith Cells Amorphous Sediment Urine Bacteria Urine Mucus ABG Data ABG results: ABG 03/12/21 03/13/21 22:25 08:11 Specimen Type ART ART Sample Site L Radial R Radial pH 7.26 L 7.35 Bicarbonate Actual 19.3 L 19.5 L Total CO2 21 21 Base Excess -8 L -6 L O2 Saturation 97 94 L O2 % 80 50 ABG pCO2 43.1 35.3 ABG pO2 101 H 75 Tk Test Positive Respiration Rate 14 14 O2 Delivery Device Adult Vent ET Tube Vent Mode AC AC Tidal Volume 480 450 POC PEEP 5 5 Radiography Diagnostic Testing: Radiology Impression Brain CT 03/12/21 22:51 IMPRESSION: Chronic involutional changes of the brain. Electronically Signed: Jeffry Fan DO at 23:02 EDT Tel , Service support , Chest X-Ray 03/12/21 23:00 IMPRESSION: ET tube and enteric tube are noted and adequately positioned. Patchy infiltrate in the right upper lobe suggesting infection Electronically Signed: Jeffry Fan DO at 23:46 EDT Tel , Service support , Echocardiogram 03/13/21 00:44 Interpretation Summary The estimated ejection fraction is EF 40% %. Infero-lateral Hypokinesia Ordering Physician: Windy Yates Referring Physician: Krishan Evans Performed By: Abbey Hernández, QUEENIE, RVT Physical Exam Const Constitutional Narrative: Unresponsive to verbal or noxious stimuli. Exam Limitations: altered mental status HEENT Head and Scalp: normocephalic Eyes PERRL Eyes Narrative: No scleral icterus Neck no lymphadenopathy Resp normal respiratory effort and clear to auscultation bilaterally Cardio regular rate, regular rhythm, S1 normal heart sound and S2 normal heart sound GI normal to inspection, nondistended, normoactive bowel sounds, non-tender and non-distended Skin no rashes or lesions noted and skin turgor normal Neuro Neuro Narrative: Does not withdraw or respond to verbal noxious stimuli. Assessment & Plan Assessment/Plan (1) Abnormal EKG: (2) Cardiac arrest: (3) Aspiration pneumonia: (4) Lactic acidosis: (5) Acute hypokalemia: (6) Elevated troponin: PLAN: This is a 71 years old female patient presented to the emergency room after she collapsed on the floor, went into asystole, status post CPR and she was found to have multiorgan failure probably due to cardiac event and found to have aspiration pneumonia, acute kidney injury, abnormal EKG with abnormal troponin. 1. cardiopulmonary arrest * Unclear reason for the cardiopulmonary arrest, probably due to cardiac event. EKG reviewed as above, does have new EKG changes, no old EKG to compare. * Troponin is 6.28. Chest x-ray reviewed as above. * Currently, patient is maintaining her blood pressure, on mechanical ventilation. * Plan: Admit to ICU, complete bedrest, continue vent management per protocol, critical care monitoring, IV fluids, critical care consult, cardiology consul t, 2D echocardiogram, repeat CBC and CMP tomorrow morning. 2. abnormal EKG/abnormal cardiac enzymes: * EKG revealed sinus tachycardia with PVCs, ST segment depression and T wave inversions in leads V3, V4 and V5, ST segment depression in leads II and III. * Patient had no cardiac history, no diabetes or hypertension. * Troponin is 6. * Plan: Cardiac monitoring, serial cardiac enzymes, repeat EKG tomorrow morning, 2D echocardiogram, rectal aspirin, cardiology consult. 3. aspiration pneumonia: * Chest x-ray reviewed. * Reportedly, patient vomited during the CPR and probably she aspirated. She is afebrile, no leukocytosis. * Plan: Start IV Unasyn, aspiration precautions. 4. encephalopathy * suspect due to anoxic encephalopathy. Pt is not on sedation * EEG * neurology consult 5. acute kidney injury: * resolved * Due to cardiac arrest. * Plan: IV fluids, input output chart, repeat BMP tomorrow morning. 6. lactic acidosis: * It is probably due to tissue hypoperfusion and hypoxemia. I doubt sepsis or severe sepsis. * Plan for IV fluids, blood culture, repeat lactic acid in 3 hours. 7. Transaminitis/elevated LFTs: * improving * Likely due to shock liver due to tissue hypoperfusion. * Plan to monitor, repeat CMP tomorrow morning. 8. hypokalemia: * Replace with potassium chloride IV, check serum magnesium. * ongoing 9. DVT prophylaxis: Subcu heparin. 10. Prognosis: poor to terminal DW pt's dtrs at bedside. Visit Charges Inpatient E&M: 32999 Subs Hosp L3
--- NOTE | 2021-03-13 12:54 | CON.PCM.CA_ITS ---
Assessment & Plan Assessment/Plan (1) Acute respiratory failure: (2) Abnormal EKG: (3) Cardiac arrest: PLAN: 71-year-old patient, witnessed cardiac arrest with resuscitation achieved ROSC Brought into the ER unresponsive intubated and admitted to the intensive care unit Has acute hypoxic respiratory failure with anoxic encephalopathy Patient intubated and on mechanical ventilator Chest remarkable change in the EKG with ST depression noted in the inferior leads and also has significant elevation of cardiac biomarkers. Today I review her echocardiogram which showed inferolateral hypokinesia and maintaining ejection fraction of around 40%. Due to aspiration pneumonia she has been on aspirin/Per?rectal. No NG tube. Recommendation; 1. From cardiac standpoint recommendation would be medical therapy with aspirin , statin, carvedilol, and lisinopril as tolerated by the blood pressure Once she had NG tube placed and following the evaluation by the neurologist to resume the cardiac medication based on her clinical progression. 2. She had aspiration pneumonia and currently on antibiotic treatment 3. She has hypokalemia and electrolytes will be monitored and corrected 4. This is witnessed prolonged CPR/post cardiac arrest patient being unresponsive on arrival with anoxic encephalopathy and will continue to monitor and follow-up clinically. 5. Guarded prognosis. (4) Aspiration pneumonia: (5) Lactic acidosis: (6) Acute hypokalemia: (7) Elevated troponin: HPI Consult Data Date of Consult: 03/13/21 Attending Care Provider: Cardiac consultation requested patient is post cardiac arrest with severe anoxic encephalopathy/unresponsive. Patient seen in the intensive care unit and cardiac care plan discussed with the nursing staff. HPI Narrative HPI Narrative: SLIME WAGNER, is a 71 F who presents [facility] Home Medications NK 03/12/21 [History Last Taken Unknown] Allergy/AdvReac Type Severity Reaction Status Date / Time codeine Allergy Other Verified 03/12/21 21:33 Social History (Updated 03/13/21 @ 00:[address] Windy Yates MD) Smoking Status: Never smoker alcohol intake: never Physical Exam Narrative Reviewed all vital signs current lab current medication and discussed with nursing staff Patient is intubated and on mechanical ventilator Unresponsive, family were at bedside. Objective Data Vital Signs: Vital Signs Temp Pulse Resp BP Pulse Ox 100.7 F H 81 20 H 119/49 L 100 03/13/21 12:00 03/13/21 12:00 03/13/21 12:00 03/13/21 12:00 03/13/21 12:00 Oxygen Flow Rate (L/min) 15 Oxygen Delivery Method Mechanical Ventilator Weight: 154 lb 12.232 oz Body Mass Index (BMI) 25.7 Intake & Output: Intake and Output for Last 24 Hours 03/11/21 03/12/21 03/13/21 23:59 23:59 23:59 Intake Total 511.97 / 511.97 1863.86 / 1863.86 Output Total 885 / 885 Balance 511.97 / 511.97 978.86 / 978.86 Lab / Micro Data Result Diagrams: 03/13/21 04:15 03/13/21 04:15 Labs: Laboratory Results - last 24 hr 03/12/21 03/12/21 03/12/21 21:30 21:30 21:30 WBC 9.3 RBC 4.10 L Hgb 12.3 Hct 39.1 MCV 95.4 MCH 30.0 MCHC 31.5 L RDW Std Deviation 47.8 H RDW Coeff of [place] 13.5 Plt Count 201 MPV 11.0 Immature Gran % (Auto) Neut % (Auto) Not Reportable Lymph % (Auto) [place] % (Auto) Eos % (Auto) Baso % (Auto) Absolute Neuts (auto) 3.7 Absolute Lymphs (auto) 4.44 Total Counted 100 Neutrophils % (Manual) 22 L Band Neutrophils % 18 H Lymphocytes % (Manual) 48 H Monocytes % (Manual) 4 Eosinophils % (Manual) 2 Metamyelocytes % 1 Myelocytes % 4 H Promyelocytes % 1 H Nucleated RBC % Differential Comment Diff Path Review May foll Reactive Lymphocytes 1+ Platelet Estimate ADEQUATE RBC Morphology NORM C+C PT 14.0 INR 1.1 APTT 35.2 Sodium 141 Potassium 2.9 L Chloride 105 Carbon Dioxide 20.0 L Anion Gap 16 H BUN 18 Creatinine 1.43 H Estim Creat Clear Calc 32.47 Est GFR (MDRD) Af Amer 47 L Est GFR (MDRD) Non-Af 38 L BUN/Creatinine Ratio 12.6 Glucose 260 H Hemoglobin A1c Lactic Acid Calcium 8.9 Magnesium Total Bilirubin 0.40 AST 231 H ALT 218 H Alkaline Phosphatase 72 Troponin I 0.107 H Total Protein 6.8 Albumin 3.5 Globulin 3.3 Albumin/Globulin Ratio 1.1 Triglycerides Cholesterol LDL Cholesterol VLDL Cholesterol HDL Cholesterol TSH Urine Color Urine Clarity Urine pH Ur Specific [place] Urine Protein Urine Glucose (UA) Urine Ketones Urine Occult Blood Urine Nitrite Urine Bilirubin Urine Urobilinogen Ur Leukocyte Esterase Urine RBC Urine WBC Ur Squamous Epith Cells Amorphous Sediment Urine Bacteria Urine Mucus 03/12/21 03/12/21 03/13/21 21:50 22:00 01:30 WBC RBC Hgb Hct MCV MCH MCHC RDW Std Deviation RDW Coeff of [place] Plt Count MPV Immature Gran % (Auto) Neut % (Auto) Lymph % (Auto) [place] % (Auto) Eos % (Auto) Baso % (Auto) Absolute Neuts (auto) Absolute Lymphs (auto) Total Counted Neutrophils % (Manual) Band Neutrophils % Lymphocytes % (Manual) Monocytes % (Manual) Eosinophils % (Manual) Metamyelocytes % Myelocytes % Promyelocytes % Nucleated RBC % Differential Comment Diff Path Review Reactive Lymphocytes Platelet Estimate RBC Morphology PT INR APTT Sodium Potassium Chloride Carbon Dioxide Anion Gap BUN Creatinine Estim Creat Clear Calc Est GFR (MDRD) Af Amer Est GFR (MDRD) Non-Af BUN/Creatinine Ratio Glucose Hemoglobin A1c Lactic Acid 8.3 H* Calcium Magnesium 1.9 Total Bilirubin AST ALT Alkaline Phosphatase Troponin I 6.710 H* Total Protein Albumin Globulin Albumin/Globulin Ratio Triglycerides 141 Cholesterol 240 H LDL Cholesterol 155 H VLDL Cholesterol 28 HDL Cholesterol 57 TSH 2.63 Urine Color YELLOW Urine Clarity Sl. Cloudy Urine pH 5.0 Ur Specific [place] 1.025 Urine Protein 100 H Urine Glucose (UA) Normal Urine Ketones Negative Urine Occult Blood 150 H Urine Nitrite Negative Urine Bilirubin Negative Urine Urobilinogen Normal Ur Leukocyte Esterase Negative Urine RBC 25-50 SEEN Urine WBC 0 SEEN Ur Squamous Epith Cells 0-5 SEEN Amorphous Sediment 1+ URATE Urine Bacteria 0 SEEN Urine Mucus 0 SEEN 03/13/21 03/13/21 03/13/21 04:10 04:15 04:15 WBC 5.6 RBC 3.09 L Hgb 9.1 L Hct 29.0 L MCV 93.9 MCH 29.4 MCHC 31.4 L RDW Std Deviation 46.8 H RDW Coeff of [place] 13.6 Plt Count 147 L MPV 10.4 Immature Gran % (Auto) 0.400 Neut % (Auto) 89.5 H Lymph % (Auto) 3.9 L [place] % (Auto) 6.0 Eos % (Auto) 0.0 Baso % (Auto) 0.2 Absolute Neuts (auto) 5.0 Absolute Lymphs (auto) 0.22 L Total Counted Neutrophils % (Manual) Band Neutrophils % Lymphocytes % (Manual) Monocytes % (Manual) Eosinophils % (Manual) Metamyelocytes % Myelocytes % Promyelocytes % Nucleated RBC % 0 Differential Comment SCANNED Diff Path Review Reactive Lymphocytes Platelet Estimate RBC Morphology PT INR APTT Sodium Potassium Chloride Carbon Dioxide Anion Gap BUN Creatinine Estim Creat Clear Calc Est GFR (MDRD) Af Amer Est GFR (MDRD) Non-Af BUN/Creatinine Ratio Glucose Hemoglobin A1c 5.6 Lactic Acid Calcium Magnesium Total Bilirubin AST ALT Alkaline Phosphatase Troponin I 6.280 H* Total Protein Albumin Globulin Albumin/Globulin Ratio Triglycerides Cholesterol LDL Cholesterol VLDL Cholesterol HDL Cholesterol TSH Urine Color Urine Clarity Urine pH Ur Specific [place] Urine Protein Urine Glucose (UA) Urine Ketones Urine Occult Blood Urine Nitrite Urine Bilirubin Urine Urobilinogen Ur Leukocyte Esterase Urine RBC Urine WBC Ur Squamous Epith Cells Amorphous Sediment Urine Bacteria Urine Mucus 03/13/21 03/13/21 04:15 04:15 WBC RBC Hgb Hct MCV MCH MCHC RDW Std Deviation RDW Coeff of [place] Plt Count MPV Immature Gran % (Auto) Neut % (Auto) Lymph % (Auto) [place] % (Auto) Eos % (Auto) Baso % (Auto) Absolute Neuts (auto) Absolute Lymphs (auto) Total Counted Neutrophils % (Manual) Band Neutrophils % Lymphocytes % (Manual) Monocytes % (Manual) Eosinophils % (Manual) Metamyelocytes % Myelocytes % Promyelocytes % Nucleated RBC % Differential Comment Diff Path Review Reactive Lymphocytes Platelet Estimate RBC Morphology PT INR APTT Sodium 149 H Potassium 2.3 L* Chloride 122 H Carbon Dioxide 19.0 L Anion Gap 8 BUN 14 Creatinine 0.50 L Estim Creat Clear Calc 44.56 Est GFR (MDRD) Af Amer 155 Est GFR (MDRD) Non-Af 128 BUN/Creatinine Ratio 27.8 H Glucose 121 H Hemoglobin A1c Lactic Acid 4.9 H* Calcium 5.6 L* Magnesium Total Bilirubin 0.20 AST 164 H ALT 136 H Alkaline Phosphatase 41 L Troponin I Total Protein 4.1 L Albumin 2.2 L Globulin 1.9 L Albumin/Globulin Ratio 1.2 Triglycerides Cholesterol LDL Cholesterol VLDL Cholesterol HDL Cholesterol TSH Urine Color Urine Clarity Urine pH Ur Specific [place] Urine Protein Urine Glucose (UA) Urine Ketones Urine Occult Blood Urine Nitrite Urine Bilirubin Urine Urobilinogen Ur Leukocyte Esterase Urine RBC Urine WBC Ur Squamous Epith Cells Amorphous Sediment Urine Bacteria Urine Mucus ABG Data ABG results: ABG 03/12/21 03/13/21 22:25 08:11 Specimen Type ART ART Sample Site L Radial R Radial pH 7.26 L 7.35 Bicarbonate Actual 19.3 L 19.5 L Total CO2 21 21 Base Excess -8 L -6 L O2 Saturation 97 94 L O2 % 80 50 ABG pCO2 43.1 35.3 ABG pO2 101 H 75 Tk Test Positive Respiration Rate 14 14 O2 Delivery Device Adult Vent ET Tube Vent Mode AC AC Tidal Volume 480 450 POC PEEP 5 5 Cardiology Labs/Tests 03/12/21 21:30: WBC 9.3, RBC 4.10 L, Hgb 12.3, Hct 39.1, MCV 95.4, MCH 30.0, MCHC 31.5 L, Plt Count 201, MPV 11.0, Neut % (Auto) Not Reportable, Absolute Neuts (auto) 3.7, Total Counted 100, Neutrophils % (Manual) 22 L, Band Neutrophils % 18 H, Lymphocytes % (Manual) 48 H, Monocytes % (Manual) 4, Eosinophils % (Manual) 2, Metamyelocytes % 1, Myelocytes % 4 H, Promyelocytes % 1 H 03/12/21 21:30: PT 14.0, INR 1.1, APTT 35.2 03/12/21 21:30: Sodium 141, Potassium 2.9 L, Chloride 105, Carbon Dioxide 20.0 L , Anion Gap 16 H, BUN 18, Creatinine 1.43 H, Est GFR (MDRD) Af Amer 47 L, Est GFR (MDRD) Non-Af 38 L, BUN/Creatinine Ratio 12.6, Glucose 260 H, Calcium 8.9, Total Bilirubin 0.40, Troponin I 0.107 H 03/12/21 21:50: Urine Color YELLOW, Urine Clarity Sl. Cloudy, Urine pH 5.0, Ur Specific [place] 1.025, Urine Protein 100 H, Urine Glucose (UA) Normal, Urine Ketones Negative, Urine Occult Blood 150 H, Urine Nitrite Negative, Urine Bilirubin Negative, Urine Urobilinogen Normal, Ur Leukocyte Esterase Negative, Urine RBC 25-50 SEEN, Urine WBC 0 SEEN 03/12/21 22:00: Lactic Acid 8.3 H* 03/12/21 22:25: pH 7.26 L, Bicarbonate Actual 19.3 L, Base Excess -8 L, O2 Saturation 97, ABG pCO2 43.1, ABG pO2 101 H, Tk Test Positive 03/13/21 01:30: Magnesium 1.9, Troponin I 6.710 H*, Triglycerides 141, Cholesterol 240 H, LDL Cholesterol 155 H, VLDL Cholesterol 28, HDL Cholesterol 57 03/13/21 04:10: Troponin I 6.280 H* 03/13/21 04:15: Hemoglobin A1c 5.6 03/13/21 04:15: WBC 5.6, RBC 3.09 L, Hgb 9.1 L, Hct 29.0 L, MCV 93.9, MCH 29.4, MCHC 31.4 L, Plt Count 147 L, MPV 10.4, Immature Gran % (Auto) 0.400, Neut % (Auto) 89.5 H, Lymph % (Auto) 3.9 L, [place] % (Auto) 6.0, Eos % (Auto) 0.0, Baso % (Auto) 0.2, Absolute Neuts (auto) 5.0, Nucleated RBC % 0 03/13/21 04:15: Sodium 149 H, Potassium 2.3 L*, Chloride 122 H, Carbon Dioxide 19.0 L, Anion Gap 8, BUN 14, Creatinine 0.50 L, Est GFR (MDRD) Af Amer 155, Est GFR (MDRD) Non-Af 128, BUN/Creatinine Ratio 27.8 H, Glucose 121 H, Calcium 5.6 L*, Total Bilirubin 0.20 03/13/21 04:15: Lactic Acid 4.9 H* 03/13/21 08:11: pH 7.35, Bicarbonate Actual 19.5 L, Base Excess -6 L, O2 Saturation 94 L, ABG pCO2 35.3, ABG pO2 75 Rhythm: EKG: ECHO: Stress Test: Cardiac Cath: PCI: CT Surgery: Holter monitor: EPS: PPM: CXR: Chest CT Scan: Radiography Diagnostic Testing: Radiology Impression Brain CT 03/12/21 22:51 IMPRESSION: Chronic involutional changes of the brain. Electronically Signed: Jeffry Fan DO at 23:02 EDT Tel , Service support , Chest X-Ray 03/12/21 23:00 IMPRESSION: ET tube and enteric tube are noted and adequately positioned. Patchy infiltrate in the right upper lobe suggesting infection Electronically Signed: Jeffry Fan DO at 23:46 EDT Tel , Service support , Echocardiogram 03/13/21 00:44 Interpretation Summary The estimated ejection fraction is EF 40% %. Infero-lateral Hypokinesia Ordering Physician: Windy Yates Referring Physician: Krishan Evans Performed By: Abbey Hernández, QUEENIE, RVT
--- NOTE | 2021-03-13 13:15 | CASEMGMT ---
ANGEL LUIS HERRERA completed chart review. Pt on mechanical ventilation currently. Pt came to ER unresponsive and nonverbal. Family members in and out of the unit crying at this time. Deferred assessment as poor prognosis for pt in reports. TC to Jenni MARINO to make aware of situation.
[2021-03-13] MEDS: CHLORHEXIDINE GLUC 2% CLOTH 1 EACH TOWELETTE TOPICAL (15:55)
[2021-03-13] MEDS: 0.9% Saline Lock 10 ML Syringe IV ×2 (15:55→22:19)
[2021-03-13 19:04] LABS: Anion Gap 7 (5-15); BUN 18 mg/dL (7-18); Calcium,Total 8.1 mg/dL (8.5-10.1); Chloride 110 mmol/L (98-107); Creatinine, Serum 0.95 mg/dL (0.55-1.02); EST Glomerular Filtration Rate 62 mL/min (>60); Est Glom Filt Rate - Afr Amer 75 mL/min (>60); Glucose 151 mg/dL (74-106); Potassium 5.1 mmol/L (3.5-5.1); Sodium Level 139 mmol/L (136-145)
[2021-03-13] MEDS: Acetaminophen 650 MG Suppository RC (21:27)
[2021-03-14] VITALS (35 sets, daily range): BP systolic 109–155; BP diastolic 49–79; PULSE 64–96; RESP 14–28; TEMP 37.8–38.3; O2SAT 93–100
[2021-03-14 05:04] LABS: Absolute Lymphocyte Count 1.01 X10^3/uL (0.83-4.51); Absolute Neutrophil Count 10.5 X10^3/uL (2.0-7.7); Basophil# 0.02 X10^3/uL; Basophil% 0.2 % (0-1); Eosinophil# 0.01 X10^3/uL; Eosinophils% 0.1 % (0-5); Hematocrit 32.1 % (37-47); Hemoglobin 10.6 g/dL (12.0-15.0); Lymphocyte # 1.01 X10^3/ul (0.83-4.51); Lymphocyte % 8.3 % (19-41); Mean Corpuscular Hgb 29.9 pg (27.0-32.0); Mean Corpuscular Volume 90.7 fL (81-99); Mean Platelet Vol. 11.1 fl (6.2-12.0); Monocyte# 0.57 X10^3/uL; Monocyte% 4.7 % (0-10); NRBC Flagged by Analyzer 0 % (0-5); Neutrophil # 10.51 X10^3/uL (2.7-7.7); Platelet Count 176 K/mm3 (150-450); RBC Distribution Width CV 14.1 % (11.6-14.6); RBC Distribution Width SD 47.3 fl (35.1-43.9); Red Blood Count 3.54 M/mm3 (4.2-5.4); White Blood Count 12.2 K/mm3 (4.4-11.0)
[2021-03-14 05:12] LABS: Anion Gap 6 (5-15); BUN 15 mg/dL (7-18); BUN/Creat Ratio 18.4 RATIO (10-20); Calcium,Total 8.1 mg/dL (8.5-10.1); Chloride 108 mmol/L (98-107); Creatinine, Serum 0.82 mg/dL (0.55-1.02); EST Glomerular Filtration Rate 74 mL/min (>60); Est Glom Filt Rate - Afr Amer 89 mL/min (>60); Estimated Creatinine Clearance 54.34 ml/min; Glucose 131 mg/dL (74-106); Magnesium 1.6 mg/dL (1.6-2.6); Potassium 4.3 mmol/L (3.5-5.1); Sodium Level 137 mmol/L (136-145)
--- NOTE | 2021-03-14 05:49 | PCM.PN.INT ---
Assessment & Plan Assessment/Plan (1) Acute respiratory failure: PLAN: RECOMMENDATIONS: 1. Continue patient on assist control mode of mechanical ventilation and wean FiO2 to maintain oxygen saturations at or above 90% 2. Maintain seizure precautions along with as needed Ativan. 3. Obtain follow-up neurology consultation. 4. Continue antimicrobials. 5. Continue gentle IV fluid hydration while n.p.o. 6. Continue to avoid sedating medications. 7. Continue appropriate ICU prophylaxis. IMPRESSIONS: 1. Acute hypoxemic respiratory failure status post cardiac arrest The patient suffered an out of hospital cardiac arrest with bystander CPR with return of spontaneous circulation achieved while in route to the hospital. The patient was emergently intubated as a consequence of the aforementioned. However, there is concern for the interval development of aspiration pneumonia. Accordingly, the patient will be continued on antimicrobials along with invasive mechanical ventilatory support. Plan to wean FiO2 to maintain oxygen saturations at or above 90%. 2. Encephalopathy/new onset seizures Initial concern for possible anoxic brain injury. The patient did demonstrate generalized tonic-clonic seizure activity at one point , which was treated with Ativan. EEG was abnormal. Continue to hold all sedating medications for now. Plan to have neurology follow-up today in light of the patient's EEG findings. 3. Aspiration pneumonia The patient was noted by EMS to have possibly aspirated. In addition, the patient also had a witnessed aspiration event in the ICU. There is an infiltrate in the patient's right upper lobe, concerning for aspiration pneumonia. Plan to continue antimicrobials as ordered. 4. Acute kidney injury Resolved. Likely prerenal in etiology with ischemic ATN secondary to the patient's acute presenting event. Plan to continue current supportive measures. Continue to monitor urine output for now. No current indication for renal replacement therapy. 5. Hypophosphatemia Electrolyte repletion as ordered. Recheck levels in the morning. TIME: 36 minutes of critical care time, independent of procedures, was spent addressing the patient's acute hypoxemic respiratory failure status post cardiac arrest, encephalopathy, new onset seizures, aspiration pneumonia, acute kidney and liver injury, review of all data and collaboration with the care team. ([id number]) Subjective Subjective The patient was seen and examined at the bedside this morning. Events from the last 24 hours have been reviewed. The patient currently has a low-grade fever but remains otherwise hemodynamically stable. She is currently maintaining appropriate oxygen saturations on assist control mode mechanical ventilation with an FiO2 requirement of 25%. The patient is currently documented to be overall net +2.4 L for the hospital admission. Phosphorus is low this morning at 2.0. The patient remains off of all form of sedation. She is neurologically unchanged from previous. No further seizure activity has been noted by the nursing staff. Objective Data Objective Data The patient's most recent lab work, culture data and imaging studies have all been personally reviewed. Surface echocardiogram revealed a mildly dilated LV with an ejection fraction of 40%. EEG completed yesterday revealed discontinuous burst suppression pattern indicating severe bihemispheric cerebral dysfunction. Blood and sputum cultures are pending. Vital Signs: Vital Signs Temp Pulse Resp BP Pulse Ox 100.0 F H 94 14 140/64 H 97 03/14/21 05:00 03/14/21 05:16 03/14/21 05:16 03/14/21 05:00 03/14/21 05:16 Oxygen Flow Rate (L/min) 15 Oxygen Delivery Method Mechanical Ventilator Weight: 154 lb 12.232 oz Body Mass Index (BMI) 25.7 Intake & Output: Intake and Output for Last 24 Hours 03/12/21 03/13/21 03/14/21 23:59 23:59 23:59 Intake Total 511.97 / 511.97 3580.70 / 3580.70 Output Total 1510 / 1635 150 / 150 Balance 511.97 / 511.97 2070.70 / 1945.70 -150 / -150 Lab / Micro Data Result Diagrams: 03/14/21 04:25 03/14/21 04:25 Labs: Laboratory Results - last 24 hr 03/13/21 03/13/21 03/13/21 04:10 04:15 18:35 WBC RBC Hgb Hct MCV MCH MCHC RDW Std Deviation RDW Coeff of [place] Plt Count MPV Immature Gran % (Auto) Neut % (Auto) Lymph % (Auto) [place] % (Auto) Eos % (Auto) Baso % (Auto) Absolute Neuts (auto) Absolute Lymphs (auto) Nucleated RBC % Sodium 139 Potassium 5.1 Chloride 110 H Carbon Dioxide 22.0 Anion Gap 7 BUN 18 Creatinine 0.95 Estim Creat Clear Calc 46.90 Est GFR (MDRD) Af Amer 75 Est GFR (MDRD) Non-Af 62 BUN/Creatinine Ratio 19.0 Glucose 151 H Hemoglobin A1c 5.6 Calcium 8.1 L Phosphorus Magnesium Troponin I 6.280 H* 03/14/21 03/14/21 04:25 04:25 WBC 12.2 H RBC 3.54 L Hgb 10.6 L Hct 32.1 L MCV 90.7 MCH 29.9 MCHC 33.0 D RDW Std Deviation 47.3 H RDW Coeff of [place] 14.1 Plt Count 176 MPV 11.1 Immature Gran % (Auto) 0.700 Neut % (Auto) 86.0 H Lymph % (Auto) 8.3 L [place] % (Auto) 4.7 Eos % (Auto) 0.1 Baso % (Auto) 0.2 Absolute Neuts (auto) 10.5 H Absolute Lymphs (auto) 1.01 Nucleated RBC % 0 Sodium 137 Potassium 4.3 Chloride 108 H Carbon Dioxide 23.0 Anion Gap 6 BUN 15 Creatinine 0.82 Estim Creat Clear Calc 54.34 Est GFR (MDRD) Af Amer 89 Est GFR (MDRD) Non-Af 74 BUN/Creatinine Ratio 18.4 Glucose 131 H Hemoglobin A1c Calcium 8.1 L Phosphorus 2.0 L Magnesium 1.6 Troponin I Micro: Microbiology 03/13/21 08:10 Sputum, Induced/Lukens Gram Stain - Final ABG Data ABG results: ABG 03/13/21 08:11 Specimen Type ART Sample Site R Radial pH 7.35 Bicarbonate Actual 19.5 L Total CO2 21 Base Excess -6 L O2 Saturation 94 L O2 % 50 ABG pCO2 35.3 ABG pO2 75 Respiration Rate 14 O2 Delivery Device ET Tube Vent Mode AC Tidal Volume 450 POC PEEP 5 Radiography Diagnostic Testing: Radiology Impression Echocardiogram 03/13/21 00:44 Interpretation Summary The estimated ejection fraction is EF 40% %. Infero-lateral Hypokinesia Ordering Physician: Windy Yates Referring Physician: Krishan Evans Performed By: Abbey Hernández, QUEENIE, RVT Physical Exam Const General Appearance: intubated and patient mechanically ventilated Orientation / Consciousness: comatose and obtunded HEENT normocephalic and head/scalp atraumatic Mouth: endotracheal tube in place and OG tube in place Eyes no scleral icterus Pupil: sluggish Neck supple General: trachea midline Resp Auscultation: Negative for rales, rhonchi or wheezes Cardio regular rate, regular rhythm, S1 normal heart sound and S2 normal heart sound Heart Sounds: Negative for murmur GI soft to palpation Auscultation: hypoactive bowel sounds Extremity no clubbing, cyanosis or edema Skin no rashes or lesions noted Neuro Neuro Narrative: The patient will withdrawal to pain but is otherwise comatose. Sensorium / Orientation: obtunded Charges/Coding Procedures Hospitalists Procedures: [id number] Critial Care 1st Hr
[2021-03-14] MEDS: Heparin Injection (Vial) 5,000 UNIT/ML VIAL 5000 UNIT SC ×3 (06:18→21:45)
[2021-03-14] MEDS: Famotidine 200 MG/20 ML MDV 20 MG in 0.9% Normal Saline (Pres. free 8 ML 300 MG IV ×2 (09:49→21:44)
[2021-03-14] MEDS: Chlorhexidine 15 ML PO ×2 (09:49→21:45)
[2021-03-14] MEDS: CHLORHEXIDINE GLUC 2% CLOTH 1 EACH TOWELETTE TOPICAL ×2 (09:49→21:30)
[2021-03-14] MEDS: Aspirin 300 MG Suppository RC (11:23)
--- NOTE | 2021-03-14 11:36 | PN.HOSP_ITS ---
Subjective Subjective No purposeful movements. Gagging noted. Briefly opened her eyes. Still on no sedation. Objective Data Objective Data Vital Signs: Vital Signs Temp Pulse Resp BP Pulse Ox 38.0 C H 94 16 131/62 H 97 03/14/21 11:00 03/14/21 11:33 03/14/21 11:11 03/14/21 11:00 03/14/21 11:11 Oxygen Flow Rate (L/min) 15 Oxygen Delivery Method Mechanical Ventilator Weight: 72.4 kg Body Mass Index (BMI) 25.7 Intake & Output: Intake and Output for Last 24 Hours 03/12/21 03/13/21 03/14/21 23:59 23:59 23:59 Intake Total 511.97 / 511.97 3580.70 / 3580.70 1752.75 / 1752.75 Output Total 1510 / 1635 925 / 925 Balance 511.97 / 511.97 2070.70 / 1945.70 827.75 / 827.75 Lab / Micro Data Attestation: I reviewed the patient's lab results. Result Diagrams: 03/14/21 04:25 03/14/21 04:25 Labs: Laboratory Results - last 24 hr 03/13/21 03/14/21 03/14/21 18:35 04:25 04:25 WBC 12.2 H RBC 3.54 L Hgb 10.6 L Hct 32.1 L MCV 90.7 MCH 29.9 MCHC 33.0 D RDW Std Deviation 47.3 H RDW Coeff of [place] 14.1 Plt Count 176 MPV 11.1 Immature Gran % (Auto) 0.700 Neut % (Auto) 86.0 H Lymph % (Auto) 8.3 L [place] % (Auto) 4.7 Eos % (Auto) 0.1 Baso % (Auto) 0.2 Absolute Neuts (auto) 10.5 H Absolute Lymphs (auto) 1.01 Nucleated RBC % 0 Sodium 139 137 Potassium 5.1 4.3 Chloride 110 H 108 H Carbon Dioxide 22.0 23.0 Anion Gap 7 6 BUN 18 15 Creatinine 0.95 0.82 Estim Creat Clear Calc 46.90 54.34 Est GFR (MDRD) Af Amer 75 89 Est GFR (MDRD) Non-Af 62 74 BUN/Creatinine Ratio 19.0 18.4 Glucose 151 H 131 H Calcium 8.1 L 8.1 L Phosphorus 2.0 L Magnesium 1.6 Micro: Microbiology 03/13/21 08:10 Sputum, Induced/Lukens Gram Stain - Final Physical Exam Const Constitutional Narrative: Does not respond to verbal or noxious stimuli. HEENT Head and Scalp: normocephalic Eyes PERRL Resp normal respiratory effort and clear to auscultation bilaterally Cardio regular rate, regular rhythm, S1 normal heart sound and S2 normal heart sound GI normal to inspection, nondistended, normoactive bowel sounds, non-tender and non-distended Skin no rashes or lesions noted Neuro Neuro Narrative: No clonus. Downgoing Babinski. Assessment & Plan Assessment/Plan (1) Abnormal EKG: (2) Cardiac arrest: (3) Aspiration pneumonia: QUALIFIERS: Aspiration pneumonia type: unspecified Laterality: unspecified laterality Lung location: unspecified part of lung Qualified Co de(s): J69.0 - Pneumonitis due to inhalation of food and vomit (4) Lactic acidosis: (5) Acute hypokalemia: (6) Elevated troponin: PLAN: This is a 71 years old female patient presented to the emergency room after she collapsed on the floor, went into asystole, status post CPR and she was found to have multiorgan failure probably due to cardiac event and found to have aspiration pneumonia, acute kidney injury, abnormal EKG with abnormal troponin. 1. cardiopulmonary arrest * Unclear reason for the cardiopulmonary arrest, probably due to cardiac event. EKG reviewed as above, does have new EKG changes, no old EKG to compare. * Troponin is 6.28. Chest x-ray reviewed as above. * Currently, patient is maintaining her blood pressure, on mechanical v entilation. * Echo shows EF 40% 2. abnormal EKG/abnormal cardiac enzymes: * EKG revealed sinus tachycardia with PVCs, ST segment depression and T wave inversions in leads V3, V4 and V5, ST segment depression in leads II and III. * Patient had no cardiac history, no diabetes or hypertension. * Troponin is 6. * Cardiology recommending medical therapy 3. aspiration pneumonia: * Chest x-ray reviewed. * Reportedly, patient vomited during the CPR and probably she aspirated. She is afebrile, no leukocytosis. * Plan: Start IV Unasyn, aspiration precautions. 4. seizure * likely 2/2 anoxic encephalopathy * EEG showed background of brief bursts sharp waves. No status epilepticus noted. Suggestive of severe bihemispheric cerebral dysfunction * SOC recommending depakote if breakthrough seizures or myoclonus * in the meantime, continue PRN lorazepam. 5. encephalopathy * suspect due to anoxic encephalopathy. Pt is not on sedation * today, pt had a gag and opened eyes, but is not doing anything purposeful * neurology consult noting burst suppression pastern on EEG is poor prognosis factor 6. acute kidney injury: * resolved * Due to cardiac arrest. * Plan: IV fluids, input output chart, repeat BMP tomorrow morning. 7. lactic acidosis: * It is probably due to tissue hypoperfusion and hypoxemia. I doubt sepsis or severe sepsis. * Plan for IV fluids, blood culture, repeat lactic acid in 3 hours. 8. Transaminitis/elevated LFTs: * improving * Likely due to shock liver due to tissue hypoperfusion. * Plan to monitor, repeat CMP tomorrow morning. 9. hypokalemia: * Replace with potassium chloride IV, check serum magnesium. * ongoing 10. DVT prophylaxis: Subcu heparin. 11. Prognosis: poor, likely terminal. Neurology recommended 72 hours as the jovita to be able to better give prognosis, but given absence of any significant response, significant meaningful recovery at this point extremely unlikely. DW pt's dtrs at bedside. Visit Charges Inpatient E&M: 18903 Subs Hosp L3
--- NOTE | 2021-03-14 13:30 | PN.CARD_ITS ---
Subjective Subjective Discussed with the nursing staff Patient still mechanical ventilator unresponsive. Objective Data Vital Signs: Vital Signs Temp Pulse Resp BP Pulse Ox 100.6 F H 85 14 125/58 H 100 03/14/21 13:00 03/14/21 13:00 03/14/21 13:00 03/14/21 13:00 03/14/21 13:00 Oxygen Flow Rate (L/min) 15 Oxygen Delivery Method Mechanical Ventilator Weight: 159 lb 9.835 oz Body Mass Index (BMI) 25.7 Intake & Output: Intake and Output for Last 24 Hours 03/12/21 03/13/21 03/14/21 23:59 23:59 23:59 Intake Total 511.97 / 511.97 3580.70 / 3580.70 1752.75 / 1752.75 Output Total 1510 / 1635 925 / 925 Balance 511.97 / 511.97 2070.70 / 1945.70 827.75 / 827.75 Lab / Micro Data Result Diagrams: 03/14/21 04:25 03/14/21 04:25 Labs: Laboratory Results - last 24 hr 03/13/21 03/14/21 03/14/21 18:35 04:25 04:25 WBC 12.2 H RBC 3.54 L Hgb 10.6 L Hct 32.1 L MCV 90.7 MCH 29.9 MCHC 33.0 D RDW Std Deviation 47.3 H RDW Coeff of [place] 14.1 Plt Count 176 MPV 11.1 Immature Gran % (Auto) 0.700 Neut % (Auto) 86.0 H Lymph % (Auto) 8.3 L [place] % (Auto) 4.7 Eos % (Auto) 0.1 Baso % (Auto) 0.2 Absolute Neuts (auto) 10.5 H Absolute Lymphs (auto) 1.01 Nucleated RBC % 0 Sodium 139 137 Potassium 5.1 4.3 Chloride 110 H 108 H Carbon Dioxide 22.0 23.0 Anion Gap 7 6 BUN 18 15 Creatinine 0.95 0.82 Estim Creat Clear Calc 46.90 54.34 Est GFR (MDRD) Af Amer 75 89 Est GFR (MDRD) Non-Af 62 74 BUN/Creatinine Ratio 19.0 18.4 Glucose 151 H 131 H Calcium 8.1 L 8.1 L Phosphorus 2.0 L Magnesium 1.6 Micro: Microbiology 03/13/21 08:10 Sputum, Induced/Lukens Gram Stain - Final 03/13/21 08:10 Sputum, Induced/Lukens Respiratory Culture - Preliminary Appears to be normal respiratory sofiya. Further studies to follow. Cardiology Labs/Tests 03/13/21 18:35: Sodium 139, Potassium 5.1, Chloride 110 H, Carbon Dioxide 22.0, Anion Gap 7, BUN 18, Creatinine 0.95, Est GFR (MDRD) Af Amer 75, Est GFR (MDRD) Non-Af 62, BUN/Creatinine Ratio 19.0, Glucose 151 H, Calcium 8.1 L 03/14/21 04:25: WBC 12.2 H, RBC 3.54 L, Hgb 10.6 L, Hct 32.1 L, MCV 90.7, MCH 29.9, MCHC 33.0 D, Plt Count 176, MPV 11.1, Immature Gran % (Auto) 0.700, Neut % (Auto) 86.0 H, Lymph % (Auto) 8.3 L, [place] % (Auto) 4.7, Eos % (Auto) 0.1, Baso % (Auto) 0.2, Absolute Neuts (auto) 10.5 H, Nucleated RBC % 0 03/14/21 04:25: Sodium 137, Potassium 4.3, Chloride 108 H, Carbon Dioxide 23.0, Anion Gap 6, BUN 15, Creatinine 0.82, Est GFR (MDRD) Af Amer 89, Est GFR (MDRD) Non-Af 74, BUN/Creatinine Ratio 18.4, Glucose 131 H, Calcium 8.1 L, Phosphorus 2.0 L, Magnesium 1.6 Rhythm: quality assurance monitor showed normal sinus EKG: Remarkable ST depression was noted especially in V2 V3 and inferior leads. ECHO: Segmental wall motion abnormality noted in the echo, inferolateral hypokinesia with reduced ejection fraction of around 40% Physical Exam Narrative Patient intubated on mechanical ventilator Unresponsive. Assessment & Plan Assessment/Plan (1) Acute respiratory failure: (2) Cardiac arrest: PLAN: 71-year-old patient, post cardiac arrest/post CPR Unresponsive on mechanical ventilator. Neurologist evaluation noted. Recommendation; Event of cardiac arrest is very likely secondary to coronary artery disease as a significant change in the EKG and elevated cardiac biomarkers, noted. Patient has severe anoxic encephalopathy. Cardiac care plan discussed with the nursing staff, medical treatment, patient has been receiving aspirin rectally. Has aspiration pneumonia. Guarded prognosis (3) Abnormal EKG: (4) Aspiration pneumonia: QUALIFIERS: Aspiration pneumonia type: unspecified Laterality: unspecified laterality Lung location: unspecified part of lung Qualified Code(s): J69.0 - Pneumonitis due to inhalation of food and vomit (5) Lactic acidosis: (6) Elevated troponin:
[2021-03-14] MEDS: Acetaminophen 650 MG Suppository RC ×2 (15:33→21:30)
--- NOTE | 2021-03-14 21:02 | NURSING ---
Spoke with [facility] and gave update.
[2021-03-15] VITALS (36 sets, daily range): BP systolic 135–179; BP diastolic 59–86; PULSE 65–104; RESP 14–28; TEMP 37.6–38.6; O2SAT 90–98
[2021-03-15 05:01] LABS: Absolute Neutrophil Count 9.4 X10^3/uL (2.0-7.7); Basophil# 0.02 X10^3/uL; Basophil% 0.2 % (0-1); Eosinophil# 0.02 X10^3/uL; Eosinophils% 0.2 % (0-5); Hematocrit 30.2 % (37-47); Lymphocyte % 6.5 % (19-41); Mean Corp Hgb Conc 33.1 g/dL (32-36); Mean Corpuscular Hgb 29.9 pg (27.0-32.0); Mean Corpuscular Volume 90.4 fL (81-99); Mean Platelet Vol. 10.9 fl (6.2-12.0); Monocyte# 0.54 X10^3/uL; NRBC Flagged by Analyzer 0 % (0-5); Neutrophil # 9.38 X10^3/uL (2.7-7.7); Neutrophil % 86.5 % (47-70); Platelet Count 158 K/mm3 (150-450); RBC Distribution Width CV 13.8 % (11.6-14.6); RBC Distribution Width SD 45.9 fl (35.1-43.9); Red Blood Count 3.34 M/mm3 (4.2-5.4); White Blood Count 10.8 K/mm3 (4.4-11.0)
[2021-03-15 05:22] LABS: Anion Gap 8 (5-15); BUN 9 mg/dL (7-18); BUN/Creat Ratio 13.1 RATIO (10-20); Chloride 105 mmol/L (98-107); Creatinine, Serum 0.68 mg/dL (0.55-1.02); EST Glomerular Filtration Rate 90 mL/min (>60); Est Glom Filt Rate - Afr Amer 109 mL/min (>60); Estimated Creatinine Clearance 44.56 ml/min; Glucose 123 mg/dL (74-106); Sodium Level 137 mmol/L (136-145)
--- NOTE | 2021-03-15 05:30 | PN.CC_ITS ---
Assessment & Plan Assessment/Plan (1) Acute respiratory failure: PLAN: RECOMMENDATIONS: 1. Continue patient on assist control mode of mechanical ventilation and wean FiO2 as tolerated. 2. Maintain seizure precautions along with as needed Ativan. 3. Continue antimicrobials. 4. Attempt to initiate trickle tube feeds today. Discontinue supplemental IV fluids. 5. Phosphorus repletion as ordered. 6. Continue to avoid sedating medications. 7. Continue appropriate ICU prophylaxis. IMPRESSIONS: 1. Acute hypoxemic respiratory failure status post cardiac arrest The patient suffered an out of hospital cardiac arrest with bystander CPR with return of spontaneous circulation achieved while in route to the hospital. The patient was emergently intubated as a consequence of the aforementioned. However, there is concern for the interval development of aspiration pneumonia. Accordingly, the patient will be continued on antimicrobials along with invasive mechanical ventilatory support. Plan to wean FiO2 to maintain oxygen saturati ons at or above 90%. 2. Encephalopathy/new onset seizures Initial concern for possible anoxic brain injury. The patient did demonstrate generalized tonic-clonic seizure activity at one point , which was treated with Ativan. EEG was abnormal, revealing burst suppression. Per neurology, there is no need for antiepileptics at the current time. EEG findings portend a poor prognosis. Continue to hold all sedating medications for now. Family would like to continue current supportive measures and evaluate daily for any signs of neurologic recovery. 3. Aspiration pneumonia The patient was noted by EMS to have possibly aspirated. In addition, the patient also had a witnessed aspiration event in the ICU. There is an infiltrate in the patient's right upper lobe, concerning for aspiration pneumonia. Plan to continue antimicrobials as ordered. 4. Acute kidney injury Resolved. Likely prerenal in etiology with ischemic ATN secondary to the patient's acute presenting event. Plan to continue current supportive measures. Continue to monitor urine output for now. No current indication for renal replacement therapy. 5. Hypophosphatemia Electrolyte repletion as ordered. Recheck levels in the morning. TIME: 34 minutes of critical care time, independent of procedures, was spent addressing the patient's acute hypoxemic respiratory failure status post cardiac arrest, encephalopathy, new onset seizures, aspiration pneumonia, acute kidney and liver injury, review of all data and collaboration with the care team. ([id number]) Subjective Subjective The patient was seen and examined at the bedside this morning. Events from the last 24 hours have been reviewed. The patient continues to have low-grade fevers but remains hemodynamically stable. She remains on assist control mode of mechanical ventilation with an FiO2 requirement of 21%. The patient is currently documented to be overall net +3.8 L for the hospital admission. Phosphorus is again low this morning at 2.0. The patient's son, who is present at the bedside, feels encouraged that his mother opened her eyes several times overnight. She is otherwise neurologically unchanged from previous. Objective Data Objective Data The patient's most recent lab work, culture data and imaging studies have all been personally reviewed. Surface echocardiogram revealed a mildly dilated LV with an ejection fraction of 40%. EEG completed yesterday revealed discontinuous burst suppression pattern indicating severe bihemispheric cerebral dysfunction. Blood and sputum cultures are pending. Vital Signs: Vital Signs Temp Pulse Resp BP Pulse Ox 99.7 F H 88 14 161/79 H 93 03/15/21 05:00 03/15/21 05:00 03/15/21 05:00 03/15/21 05:00 03/15/21 05:00 Oxygen Flow Rate (L/min) 15 Oxygen Delivery Method Mechanical Ventilator Weight: 159 lb 9.835 oz Body Mass Index (BMI) 25.7 Intake & Output: Intake and Output for Last 24 Hours 03/13/21 03/14/21 03/15/21 23:59 23:59 23:59 Intake Total 3580.70 / 3580.70 3127.25 / 3157.25 1076.17 / 1076.17 Output Total 1510 / 1635 1625 / 2530 1280 / 1280 Balance 2070.70 / 1945.70 1502.25 / 627.25 -203.83 / -203.83 Lab / Micro Data Attestation: I reviewed the patient's lab results. Result Diagrams: 03/15/21 04:46 03/15/21 04:46 Labs: Laboratory Results - last 24 hr 03/15/21 03/15/21 04:46 04:46 WBC 10.8 RBC 3.34 L Hgb 10.0 L Hct 30.2 L MCV 90.4 MCH 29.9 MCHC 33.1 RDW Std Deviation 45.9 H RDW Coeff of [place] 13.8 Plt Count 158 MPV 10.9 Immature Gran % (Auto) 1.600 H Neut % (Auto) 86.5 H Lymph % (Auto) 6.5 L [place] % (Auto) 5.0 Eos % (Auto) 0.2 Baso % (Auto) 0.2 Absolute Neuts (auto) 9.4 H Absolute Lymphs (auto) 0.70 L Nucleated RBC % 0 Sodium 137 Potassium 4.0 Chloride 105 Carbon Dioxide 24.0 Anion Gap 8 BUN 9 Creatinine 0.68 Estim Creat Clear Calc 44.56 Est GFR (MDRD) Af Amer 109 Est GFR (MDRD) Non-Af 90 BUN/Creatinine Ratio 13.1 Glucose 123 H Calcium 8.0 L Phosphorus 2.0 L Magnesium 2.0 Micro: Microbiology 03/13/21 08:10 Sputum, Induced/Lukens Gram Stain - Final 03/13/21 08:10 Sputum, Induced/Lukens Respiratory Culture - Preliminary Appears to be normal respiratory sofiya. Further studies to follow. Physical Exam Const Constitutional Narrative: Initiate spontaneous breaths on spontaneous mode of mechanical ventilation. General Appearance: intubated and patient mechanically ventilated Orientation / Consciousness: comatose and obtunded HEENT normocephalic and head/scalp atraumatic Mouth: endotracheal tube in place and OG tube in place Eyes no scleral icterus Pupil: sluggish Neck supple General: trachea midline Lymph Lymphatic: no lymphadenopathy noted Resp Auscultation: Negative for rales, rhonchi or wheezes Cardio regular rate, regular rhythm, S1 normal heart sound and S2 normal heart sound Heart Sounds: Negative for murmur GI soft to palpation Auscultation: hypoactive bowel sounds Extremity no clubbing, cyanosis or edema Skin no rashes or lesions noted Neuro Neuro Narrative: The patient will withdrawal to pain but is otherwise comatose. Gag is present. Sensorium / Orientation: obtunded Charges/Coding Procedures Hospitalists Procedures: [id number] Critial Care 1st Hr
[2021-03-15] MEDS: Heparin Injection (Vial) 5,000 UNIT/ML VIAL 5000 UNIT SC ×3 (05:39→21:32)
--- NOTE | 2021-03-15 09:08 | NURSING ---
Spoke with [facility] and gave update on current clinical findings.
--- NOTE | 2021-03-15 09:40 | PN.HOSP_ITS ---
Subjective Subjective Seen and examined. Patient on vent support. Low-grade fever. As per nursing staff, patient opens her eyes. and daughter sitting nearby. Not on sedatives. Objective Data Objective Data Vital Signs: Vital Signs Temp Pulse Resp BP Pulse Ox 100.2 F H 91 16 159/59 H 96 03/15/21 08:00 03/15/21 09:02 03/15/21 09:02 03/15/21 08:00 03/15/21 09:02 Oxygen Flow Rate (L/min) 15 Oxygen Delivery Method Mechanical Ventilator Weight: 156 lb 15.506 oz Body Mass Index (BMI) 25.7 Intake & Output: Intake and Output for Last 24 Hours 03/13/21 03/14/21 03/15/21 23:59 23:59 23:59 Intake Total 3580.70 / 3580.70 3127.25 / 3157.25 1188.17 / 1188.17 Output Total 1510 / 1635 1625 / 2530 1355 / 1355 Balance 2070.70 / 1945.70 1502.25 / 627.25 -166.83 / -166.83 Lab / Micro Data Result Diagrams: 03/15/21 04:46 03/15/21 04:46 Labs: Laboratory Results - last 24 hr 03/15/21 03/15/21 04:46 04:46 WBC 10.8 RBC 3.34 L Hgb 10.0 L Hct 30.2 L MCV 90.4 MCH 29.9 MCHC 33.1 RDW Std Deviation 45.9 H RDW Coeff of [place] 13.8 Plt Count 158 MPV 10.9 Immature Gran % (Auto) 1.600 H Neut % (Auto) 86.5 H Lymph % (Auto) 6.5 L [place] % (Auto) 5.0 Eos % (Auto) 0.2 Baso % (Auto) 0.2 Absolute Neuts (auto) 9.4 H Absolute Lymphs (auto) 0.70 L Nucleated RBC % 0 Sodium 137 Potassium 4.0 Chloride 105 Carbon Dioxide 24.0 Anion Gap 8 BUN 9 Creatinine 0.68 Estim Creat Clear Calc 44.56 Est GFR (MDRD) Af Amer 109 Est GFR (MDRD) Non-Af 90 BUN/Creatinine Ratio 13.1 Glucose 123 H Calcium 8.0 L Phosphorus 2.0 L Magnesium 2.0 Micro: Microbiology 03/13/21 08:10 Sputum, Induced/Lukens Gram Stain - Final 03/13/21 08:10 Sputum, Induced/Lukens Respiratory Culture - Final Presumptive C albicans 03/13/21 00:05 Blood Culture (Wb) - Left Wrist Blood Culture - Preliminary No growth in 48 hours. 03/13/21 00:06 Blood Culture (Wb) - Anticubital Left Blood Culture - Preliminary No growth in 48 hours. Physical Exam Narrative General: Eyes closed. HEENT: Pupils bilateral reactive but sluggish. ET and OG tube. Eyeball movement present. Oral: No Gingival or Mucosal Lesions/ Ulcerations Neck: Supple, No JVD, Negative Carotid Bruits Lungs: Air entry diminished in bilateral lung bases. Cardiovascular: Regular rate, Regular Rhythm, Normal S1, Normal S2, No murmurs Abdomen: Bowel Sounds Present, Soft, Non Tender, Non-Distended : No renal angle tenderness. No suprapubic tenderness. Extremities: No edema, Capillary Refill Less than 3 Seconds Skin: No rashes, No breakdown Musculoskeletal: No Tenderness to Palpation of Joints or Extremities Neurological: no spontaneous limb movement. Neuro exam limited. Gag reflex present. Psych/Mental Status: Obtunded. On life support Assessment & Plan Assessment/Plan (1) Acute respiratory failure: (2) Cardiac arrest: (3) Aspiration pneumonia: QUALIFIERS: Aspiration pneumonia type: unspecified Laterality: unspecified laterality Lung location: unspecified part of lung Qualified Code(s): J69.0 - Pneumonitis due to inhalation of food and vomit PLAN: This is a 71 years old female patient presented to the emergency room after she collapsed on the floor, went into asystole, status post CPR and she was found to have multiorgan failure probably due to cardiac event and found to have aspiration pneumonia, acute kidney injury, abnormal EKG with abnormal troponin. 1. cardiopulmonary arrest with acute hypoxic respiratory failure: Patient is in ICU, intubated. Junior Software Developer managing the vent. 2D echo EF 40% with mildly dilated LV. 2.? Abnormal EKG/non-STEMI: EKG sinus tachycardia with PVCs, ST segment depression and T wave inversions in leads V3, V4 and V5, ST segment depression in leads II and III. Troponin 6.1. Service Team Leader consulted and recommended medical management. 3. aspiration pneumonia: Patient vomiting during CPR probably aspirated. On IV Unasyn. Patient has OG tube 4. seizure, exact type unclear but probably due to anoxic encephalopathy:EEG showed background of brief bursts sharp waves. No status epilepticus noted. Suggestive of severe bihemispheric cerebral dysfunction. SOC recommended Depakote if breakthrough seizure or myoclonus but currently with as needed anali azepam. 5. acute kidney injury with hypophosphatemia: Most likely from cardiac arrest/ATN. Monitor intake and output. Resolved. 6.? lactic acidosis: Most likely from tissue hypoperfusion and hypoxemia. 7. Shock liver with elevated transaminases: Monitor liver chemistry test 8.? Hypokalemia:Resolved. 9. DVT prophylaxis: Subcu heparin. 10. Guarded prognosis. Neurologist recommended 72 hours for better prognostication. Total time of the visit including total time spent in counseling or coordination of care, (more than 50% of the total time, spent in obtaining medical information from nurses and other ancillary care providers,explaining to the patient about labs, imaging, diagnosis and management), discussion with the daughter and , review of labs and imaging is 30 minutes. Visit Charges Inpatient E&M: 77505 Subs Hosp L3
[2021-03-15] MEDS: Chlorhexidine 15 ML PO (10:24)
[2021-03-15] MEDS: Aspirin 300 MG Suppository RC (10:24)
[2021-03-15] MEDS: Famotidine 200 MG/20 ML MDV 20 MG in 0.9% Normal Saline (Pres. free 8 ML 300 MG IV ×2 (10:24→21:29)
--- NOTE | 2021-03-15 12:29 | PCM.PN.CARD ---
Subjective Subjective Patient seen and evaluated. Still intubated. Not very responsive. Objective Data Vital Signs: Vital Signs Temp Pulse Resp BP Pulse Ox 100.5 F H 82 28 H 151/60 H 94 03/15/21 11:00 03/15/21 11:17 03/15/21 11:00 03/15/21 11:00 03/15/21 11:00 Oxygen Flow Rate (L/min) 15 Oxygen Delivery Method Mechanical Ventilator Weight: 156 lb 15.506 oz Body Mass Index (BMI) 25.7 Intake & Output: Intake and Output for Last 24 Hours 03/13/21 03/14/21 03/15/21 23:59 23:59 23:59 Intake Total 3580.70 / 3580.70 3127.25 / 3157.25 1198.17 / 1198.17 Output Total 1510 / 1635 1625 / 2530 1355 / 1355 Balance 2070.70 / 1945.70 1502.25 / 627.25 -156.83 / -156.83 Lab / Micro Data Result Diagrams: 03/15/21 04:46 03/15/21 04:46 Labs: Laboratory Results - last 24 hr 03/15/21 03/15/21 04:46 04:46 WBC 10.8 RBC 3.34 L Hgb 10.0 L Hct 30.2 L MCV 90.4 MCH 29.9 MCHC 33.1 RDW Std Deviation 45.9 H RDW Coeff of [place] 13.8 Plt Count 158 MPV 10.9 Immature Gran % (Auto) 1.600 H Neut % (Auto) 86.5 H Lymph % (Auto) 6.5 L [place] % (Auto) 5.0 Eos % (Auto) 0.2 Baso % (Auto) 0.2 Absolute Neuts (auto) 9.4 H Absolute Lymphs (auto) 0.70 L Nucleated RBC % 0 Sodium 137 Potassium 4.0 Chloride 105 Carbon Dioxide 24.0 Anion Gap 8 BUN 9 Creatinine 0.68 Estim Creat Clear Calc 44.56 Est GFR (MDRD) Af Amer 109 Est GFR (MDRD) Non-Af 90 BUN/Creatinine Ratio 13.1 Glucose 123 H Calcium 8.0 L Phosphorus 2.0 L Magnesium 2.0 Micro: Microbiology 03/13/21 08:10 Sputum, Induced/Lukens Gram Stain - Final 03/13/21 08:10 Sputum, Induced/Lukens Respiratory Culture - Final Presumptive C albicans 03/13/21 00:05 Blood Culture (Wb) - Left Wrist Blood Culture - Preliminary No growth in 48 hours. 03/13/21 00:06 Blood Culture (Wb) - Anticubital Left Blood Culture - Preliminary No growth in 48 hours. Cardiology Labs/Tests 03/15/21 04:46: WBC 10.8, RBC 3.34 L, Hgb 10.0 L, Hct 30.2 L, MCV 90.4, MCH 29.9, MCHC 33.1, Plt Count 158, MPV 10.9, Immature Gran % (Auto) 1.600 H, Neut % (Auto) 86.5 H, Lymph % (Auto) 6.5 L, [place] % (Auto) 5.0, Eos % (Auto) 0.2, Baso % (Auto) 0.2, Absolute Neuts (auto) 9.4 H, Nucleated RBC % 0 03/15/21 04:46: Sodium 137, Potassium 4.0, Chloride 105, Carbon Dioxide 24.0, Anion Gap 8, BUN 9, Creatinine 0.68, Est GFR (MDRD) Af Amer 109, Est GFR (MDRD) Non-Af 90, BUN/Creatinine Ratio 13.1, Glucose 123 H, Calcium 8.0 L, Phosphorus 2.0 L, Magnesium 2.0 Rhythm: EKG: ECHO: Global hypokinesis with mild inferolateral hypokinesis, estimated ejection fraction 40% Stress Test: Cardiac Cath: PCI: CT Surgery: Holter monitor: EPS: PPM: CXR: Chest CT Scan: Physical Exam Const oriented x3 and healthy appearing Orientation / Consciousness: awake HEENT normocephalic Eyes PERRL and conjunctivae normal Neck supple, no JVD and no carotid bruits Chest inspection of chest normal Resp normal respiratory effort and clear to auscultation bilaterally Cardio Palpation: normal PMI Rate: regular rate Rhythm: regular rhythm Heart Sounds: S1 normal and S2 normal Peripheral Pulses: pulses 2+ throughout GI normal to inspection, nondistended, normoactive bowel sounds Extremity normal to inspection and no clubbing, cyanosis or edema Assessment & Plan Assessment/Plan (1) Cardiac arrest: PLAN: Patient is status post cardiac arrest. Still awaiting neurological improvement to determine whether any further cardiac work-up would be undertaken. I did explain the above to the family and they do understand. We will continue with supportive therapy at this particular time. Thank you for allowing me to participate in the care of your patient. Please don't hesitate to call if any issues arise.
[2021-03-15] MEDS: Acetaminophen 650 MG Suppository RC ×2 (12:40→21:31)
[2021-03-15] MEDS: Vital AF 1.2 Cal Liquid 1,000 ML 15 ML GT (12:41)
--- NOTE | 2021-03-15 20:15 | NURSING ---
Pt's dtrs at bedside, comprehensive neuro assessment performed and explained what each area of assessment means if present or absent. Family states appreciation and follows directions well to allow staff room to care for their mother.
--- NOTE | 2021-03-15 23:10 | MDS.RN ---
Patient noted to remain febrile after tylenol administration, patients armpits packed with ice packs. Will continue to monitor.
[2021-03-16] VITALS (30 sets, daily range): BP systolic 127–212; BP diastolic 56–96; PULSE 78–104; RESP 12–23; TEMP 38.2–38.8; O2SAT 91–100; BMI 26.0
[2021-03-16] MEDS: Chlorhexidine 15 ML PO ×2 (00:40→11:31)
[2021-03-16] MEDS: Acetaminophen 650 MG Suppository RC (03:16)
[2021-03-16 04:03] LABS: Absolute Lymphocyte Count 0.62 X10^3/uL (0.83-4.51); Absolute Neutrophil Count 8.8 X10^3/uL (2.0-7.7); Basophil# 0.04 X10^3/uL; Basophil% 0.4 % (0-1); Eosinophil# 0.02 X10^3/uL; Eosinophils% 0.2 % (0-5); Hematocrit 32.4 % (37-47); Hemoglobin 10.6 g/dL (12.0-15.0); Lymphocyte # 0.62 X10^3/ul (0.83-4.51); Lymphocyte % 6.1 % (19-41); Mean Corp Hgb Conc 32.7 g/dL (32-36); Mean Corpuscular Hgb 29.5 pg (27.0-32.0); Mean Corpuscular Volume 90.3 fL (81-99); Mean Platelet Vol. 11.2 fl (6.2-12.0); Monocyte# 0.61 X10^3/uL; NRBC Flagged by Analyzer 0 % (0-5); Neutrophil # 8.83 X10^3/uL (2.7-7.7); Platelet Count 197 K/mm3 (150-450); RBC Distribution Width CV 13.9 % (11.6-14.6); RBC Distribution Width SD 45.9 fl (35.1-43.9); Red Blood Count 3.59 M/mm3 (4.2-5.4); White Blood Count 10.2 K/mm3 (4.4-11.0)
[2021-03-16 04:13] LABS: Anion Gap 9 (5-15); BUN 14 mg/dL (7-18); BUN/Creat Ratio 22.2 RATIO (10-20); Calcium,Total 8.6 mg/dL (8.5-10.1); Chloride 106 mmol/L (98-107); Creatinine, Serum 0.63 mg/dL (0.55-1.02); EST Glomerular Filtration Rate 99 mL/min (>60); Est Glom Filt Rate - Afr Amer 120 mL/min (>60); Estimated Creatinine Clearance 44.56 ml/min; Glucose 98 mg/dL (74-106); Phosphorus 2.7 mg/dL (2.5-4.9); Sodium Level 140 mmol/L (136-145)
[2021-03-16] MEDS: CHLORHEXIDINE GLUC 2% CLOTH 1 EACH TOWELETTE TOPICAL (05:03)
--- NOTE | 2021-03-16 05:47 | PCM.PN.INT ---
Assessment & Plan Assessment/Plan (1) Acute respiratory failure: PLAN: RECOMMENDATIONS: 1. Continue patient on assist control mode of mechanical ventilation and wean FiO2 as tolerated. 2. Maintain seizure precautions along with as needed Ativan. 3. Continue antimicrobials. Check MRSA screen today as well. 4. Advance tube feed infusion rate as tolerated. 5. Check ammonia and TSH. Obtain MRI brain and repeat EEG. 6. Continue to avoid sedating medications. 7. Continue appropriate ICU prophylaxis. IMPRESSIONS: 1. Acute hypoxemic respiratory failure status post cardiac arrest The patient suffered an out of hospital cardiac arrest with bystander CPR with return of spontaneous circulation achieved while in route to the hospital. The patient was emergently intubated as a consequence of the aforementioned. However, there is concern for the interval development of aspiration pneumonia. Accordingly, the patient will be continued on antimicrobials along with invasive mechanical ventilatory support. Plan to wean FiO2 to maintain oxygen saturations at or above 90%. 2. Encephalopathy/new onset seizures Initial concern for possible anoxic brain injury. The patient did demonstrate generalized tonic-clonic seizure activity at one point , which was treated with Ativan. EEG was abnormal, revealing burst suppression. Per neurology, there was no need for antiepileptics. No further seizure activity has been noted. Will obtain MRI brain this morning along with repeat EEG for further prognostication. Will also check ammonia and TSH level. If the aforementioned work-up were to be unremarkable and there is any concern for possible nonconvulsive status, the patient may require transfer to a tertiary care facility. 3. Aspiration pneumonia The patient was noted by EMS to have possibly aspirated. In addition, the patient also had a witnessed aspiration event in the ICU. There is an infiltrate in the patient's right upper lobe, concerning for aspiration pneumonia. Plan to continue antimicrobials as ordered. 4. Acute kidney injury Resolved. Likely prerenal in etiology with ischemic ATN secondary to the patient's acute presenting event. Plan to continue current supportive measures. Continue to monitor urine output for now. No current indication for renal replacement therapy. TIME: 37 minutes of critical care time, independent of procedures, was spent addressing the patient's acute hypoxemic respiratory failure status post cardiac arrest, encephalopathy, new onset seizures, aspiration pneumonia, acute kidney and liver injury, review of all data and collaboration with the care team. ([id number]) Subjective Subjective The patient was seen and examined at the bedside this morning. Events from the last 24 hours have been reviewed. The patient continues to have fevers but remains hemodynamically stable. T-max overnight was noted to be 101.5 ?F. She remains on assist control mode of mechanical ventilation with an FiO2 requirement of 21%. The patient is currently documented to be overall net +3.2 L for the hospital admission. The patient will initiate small tidal volume breaths on spontaneous mode of mechanical ventilation. Objective Data Objective Data The patient's most recent lab work, culture data and imaging studies have all been personally reviewed. Surface echocardiogram revealed a mildly dilated LV with an ejection fraction of 40%. EEG completed yesterday revealed discontinuous burst suppression pattern indicating severe bihemispheric cerebral dysfunction. Blood and sputum cultures have demonstrated no growth to date. Vital Signs: Vital Signs Temp Pulse Resp BP Pulse Ox 101.3 F H 86 14 171/77 H 93 03/16/21 05:00 03/16/21 05:00 03/16/21 05:00 03/16/21 05:00 03/16/21 05:00 Oxygen Flow Rate (L/min) 60 Oxygen Delivery Method Mechanical Ventilator Weight: 156 lb 15.506 oz Body Mass Index (BMI) 25.7 Intake & Output: Intake and Output for Last 24 Hours 03/14/21 03/15/21 03/16/21 23:59 23:59 23:59 Intake Total 3127.25 / 3157.25 2178.84 / 2178.84 Output Total 1625 / 2530 2720 / 2845 345 / 345 Balance 1502.25 / 627.25 -541.16 / -666.16 -345 / -345 Lab / Micro Data Attestation: I reviewed the patient's lab results. Result Diagrams: 03/16/21 03:35 03/16/21 03:35 Labs: Laboratory Results - last 24 hr 03/16/21 03/16/21 03:35 03:35 WBC 10.2 RBC 3.59 L Hgb 10.6 L Hct 32.4 L MCV 90.3 MCH 29.5 MCHC 32.7 RDW Std Deviation 45.9 H RDW Coeff of [place] 13.9 Plt Count 197 MPV 11.2 Immature Gran % (Auto) 0.300 Neut % (Auto) 87.0 H Lymph % (Auto) 6.1 L [place] % (Auto) 6.0 Eos % (Auto) 0.2 Baso % (Auto) 0.4 Absolute Neuts (auto) 8.8 H Absolute Lymphs (auto) 0.62 L Nucleated RBC % 0 Sodium 140 Potassium 4.0 Chloride 106 Carbon Dioxide 25.0 Anion Gap 9 BUN 14 Creatinine 0.63 Estim Creat Clear Calc 44.56 Est GFR (MDRD) Af Amer 120 Est GFR (MDRD) Non-Af 99 BUN/Creatinine Ratio 22.2 H Glucose 98 Calcium 8.6 Phosphorus 2.7 Micro: Microbiology 03/13/21 08:10 Sputum, Induced/Lukens Gram Stain - Final 03/13/21 08:10 Sputum, Induced/Lukens Respiratory Culture - Final Presumptive C albicans 03/13/21 00:05 Blood Culture (Wb) - Left Wrist Blood Culture - Preliminary No growth in 48 hours. 03/13/21 00:06 Blood Culture (Wb) - Anticubital Left Blood Culture - Preliminary No growth in 48 hours. Physical Exam Const no apparent distress Constitutional Narrative: Initiate spontaneous breaths on spontaneous mode of mechanical ventilation. General Appearance: patient mechanically ventilated HEENT normocephalic, head/scalp atraumatic and moist oral mucous membranes Mouth: endotracheal tube in place and OG tube in place Eyes Sclera: sclera normal Cornea: cornea normal Pupil: PERRL Neck supple General: trachea midline Lymph Lymphatic: no lymphadenopathy noted Resp Auscultation: diminished lung sounds; Negative for rales, rhonchi or wheezes Cardio regular rate, regular rhythm, S1 normal heart sound and S2 normal heart sound GI normal to inspection, nondistended, normoactive bowel sounds Extremity no clubbing, cyanosis or edema Skin no rashes or lesions noted Neuro Neuro Narrative: The patient will withdrawal to pain but is otherwise comatose. Gag is present. Comatose: corneal reflex present and response to noxious stimuli present Charges/Coding Procedures Hospitalists Procedures: 53907 Critial Care 1st Hr
[2021-03-16] MEDS: Heparin Injection (Vial) 5,000 UNIT/ML VIAL 5000 UNIT SC ×2 (05:49→14:05)
--- NOTE | 2021-03-16 07:23 | PN.CARD_ITS ---
Subjective Subjective Patient seen and evaluated. No change in cardiac symptomatology Objective Data Vital Signs: Vital Signs Temp Pulse Resp BP Pulse Ox 101.1 F H 87 17 161/72 H 93 03/16/21 07:00 03/16/21 07:15 03/16/21 07:15 03/16/21 07:00 03/16/21 07:15 Oxygen Flow Rate (L/min) 60 Oxygen Delivery Method Mechanical Ventilator Weight: 156 lb 4.924 oz Body Mass Index (BMI) 25.7 Intake & Output: Intake and Output for Last 24 Hours 03/14/21 03/15/21 03/16/21 23:59 23:59 23:59 Intake Total 3127.25 / 3157.25 2178.84 / 2178.84 297 / 297 Output Total 1625 / 2530 2720 / 2845 465 / 465 Balance 1502.25 / 627.25 -541.16 / -666.16 -168 / -168 Lab / Micro Data Result Diagrams: 03/16/21 03:35 03/16/21 03:35 Labs: Laboratory Results - last 24 hr 03/16/21 03/16/21 03:35 03:35 WBC 10.2 RBC 3.59 L Hgb 10.6 L Hct 32.4 L MCV 90.3 MCH 29.5 MCHC 32.7 RDW Std Deviation 45.9 H RDW Coeff of [place] 13.9 Plt Count 197 MPV 11.2 Immature Gran % (Auto) 0.300 Neut % (Auto) 87.0 H Lymph % (Auto) 6.1 L [place] % (Auto) 6.0 Eos % (Auto) 0.2 Baso % (Auto) 0.4 Absolute Neuts (auto) 8.8 H Absolute Lymphs (auto) 0.62 L Nucleated RBC % 0 Sodium 140 Potassium 4.0 Chloride 106 Carbon Dioxide 25.0 Anion Gap 9 BUN 14 Creatinine 0.63 Estim Creat Clear Calc 44.56 Est GFR (MDRD) Af Amer 120 Est GFR (MDRD) Non-Af 99 BUN/Creatinine Ratio 22.2 H Glucose 98 Calcium 8.6 Phosphorus 2.7 Micro: Microbiology 03/13/21 08:10 Sputum, Induced/Lukens Gram Stain - Final 03/13/21 08:10 Sputum, Induced/Lukens Respiratory Culture - Final Presumptive C albicans 03/13/21 00:05 Blood Culture (Wb) - Left Wrist Blood Culture - Preliminary No growth in 48 hours. 03/13/21 00:06 Blood Culture (Wb) - Anticubital Left Blood Culture - Preliminary No growth in 48 hours. Cardiology Labs/Tests 03/16/21 03:35: WBC 10.2, RBC 3.59 L, Hgb 10.6 L, Hct 32.4 L, MCV 90.3, MCH 29.5, MCHC 32.7, Plt Count 197, MPV 11.2, Immature Gran % (Auto) 0.300, Neut % (Auto) 87.0 H, Lymph % (Auto) 6.1 L, [place] % (Auto) 6.0, Eos % (Auto) 0.2, Baso % (Auto) 0.4, Absolute Neuts (auto) 8.8 H, Nucleated RBC % 0 03/16/21 03:35: Sodium 140, Potassium 4.0, Chloride 106, Carbon Dioxide 25.0, Anion Gap 9, BUN 14, Creatinine 0.63, Est GFR (MDRD) Af Amer 120, Est GFR (MDRD) Non-Af 99, BUN/Creatinine Ratio 22.2 H, Glucose 98, Calcium 8.6, Phosphorus 2.7 Rhythm: EKG: ECHO: Stress Test: Cardiac Cath: PCI: CT Surgery: Holter monitor: EPS: PPM: CXR: Chest CT Scan: Physical Exam Const oriented x3 and healthy appearing Orientation / Consciousness: awake HEENT normocephalic Eyes PERRL and conjunctivae normal Neck supple, no JVD and no carotid bruits Chest inspection of chest normal Resp normal respiratory effort and clear to auscultation bilaterally Cardio Palpation: normal PMI Rate: regular rate Rhythm: regular rhythm Heart Sounds: S1 normal and S2 normal Peripheral Pulses: pulses 2+ throughout GI normal to inspection, nondistended, normoactive bowel sounds Extremity normal to inspection and no clubbing, cyanosis or edema Neuro Neuro Narrative: Not responsive Assessment & Plan Assessment/Plan (1) Cardiac arrest: PLAN: Patient is status post cardiac arrest. Still awaiting neurological improvement to determine whether any further cardiac work-up would be undertaken. I did explain the above to the family and they do understand. I also did clarify the issue of myocardial damage based on the enzyme abnormality as well as echocardiographic findings. We will continue with supportive therapy at this particular time. Thank you for allowing me to participate in the care of your patient. Please don't hesitate to call if any issues arise. (2) NSTEMI (non-ST elevated myocardial infarction): PLAN: Based on cardiac enzyme abnormality the patient did encounter a non- ST elevation myocardial infarction. For now the treatment is going to be expectant based on neurological recovery. I have explained this to the patient's family and they understand Thank you for allowing me to participate in the care of your patient. Please don't hesitate to call if any issues arise.
--- NOTE | 2021-03-16 07:41 | MRI_ITS ---
STUDY: MRI BRAIN WITH AND WITHOUT CONTRAST REASON FOR EXAM: Female, 71 years old. Eval for anoxic brain injury, Pt camatose S/P CARDIAC ARREST TECHNIQUE: Standardized multiplanar fat and water weighted pulse sequences were obtained. IV Yes YES was administered for the contrast portion of the examination. COMPARISON: CT 03/04/2021 FINDINGS: There is mild cerebral atrophy with widening of the extra-axial spaces and ventricular dilatation. Normal white matter tracts of the supratentorial brain. There is no evidence for recent intracranial ischemia or other cause of cytotoxic edema on diffusion weighted imaging (DWI). Normal T2* images of the brain without demonstrated susceptibility artifact. There is no demonstrated hemosiderin stain. Normal bilateral basal ganglia. Normal thalami. There is no extra-axial fluid accumulation. Normal flow voids within the major intracranial circulation suggesting patency by spin echo criteria. Normal venous enhancement. There is no enhancing intra-axial or extra-axial abnormality. Normal sella turcica, pituitary gland, infundibular stalk, optic chiasm and hypothalamus. Normal tectal plate and pineal gland. Normal midbrain, fred and medulla. Normal cerebellum. Normal basal cisterns. Normal bilateral temporal bones. Normal bilateral internal auditory canals. No demonstrated orbital abnormality, within the constraints of a routine brain study. Mucosal thickening in the sphenoid sinuses with an air-fluid level in the left sphenoid sinus consistent with acute on chronic sinusitis. Normal calvarium and skull base. Normal visualized soft tissue structures. Normal visualized upper cervical spine. MRI/Brain W/WO Contrast IMPRESSION: Involutional changes of the brain, as described above. No MR evidence of anoxic brain injury. Acute on chronic left sphenoid sinusitis per Electronically Signed: Jose Tovar MD at 11:27 EDT Tel , Service support ,
--- NOTE | 2021-03-16 08:28 | PCM.PN.HOSP ---
Subjective Subjective Sometimes since open eyes on verbal command from . Not much change from yesterday. Tube feeding started Objective Data Objective Data Vital Signs: Vital Signs Temp Pulse Resp BP Pulse Ox 100.9 F H 88 17 178/75 H 94 03/16/21 08:00 03/16/21 08:00 03/16/21 08:00 03/16/21 08:00 03/16/21 08:12 Oxygen Flow Rate (L/min) 60 Oxygen Delivery Method Mechanical Ventilator Weight: 156 lb 4.924 oz Body Mass Index (BMI) 25.7 Intake & Output: Intake and Output for Last 24 Hours 03/14/21 03/15/21 03/16/21 23:59 23:59 23:59 Intake Total 3127.25 / 3157.25 2178.84 / 2178.84 297 / 297 Output Total 1625 / 2530 2720 / 2845 465 / 465 Balance 1502.25 / 627.25 -541.16 / -666.16 -168 / -168 Lab / Micro Data Result Diagrams: 03/16/21 03:35 03/16/21 03:35 Labs: Laboratory Results - last 24 hr 03/16/21 03/16/21 03:35 03:35 WBC 10.2 RBC 3.59 L Hgb 10.6 L Hct 32.4 L MCV 90.3 MCH 29.5 MCHC 32.7 RDW Std Deviation 45.9 H RDW Coeff of [place] 13.9 Plt Count 197 MPV 11.2 Immature Gran % (Auto) 0.300 Neut % (Auto) 87.0 H Lymph % (Auto) 6.1 L [place] % (Auto) 6.0 Eos % (Auto) 0.2 Baso % (Auto) 0.4 Absolute Neuts (auto) 8.8 H Absolute Lymphs (auto) 0.62 L Nucleated RBC % 0 Sodium 140 Potassium 4.0 Chloride 106 Carbon Dioxide 25.0 Anion Gap 9 BUN 14 Creatinine 0.63 Estim Creat Clear Calc 44.56 Est GFR (MDRD) Af Amer 120 Est GFR (MDRD) Non-Af 99 BUN/Creatinine Ratio 22.2 H Glucose 98 Calcium 8.6 Phosphorus 2.7 Micro: Microbiology 03/13/21 08:10 Sputum, Induced/Lukens Gram Stain - Final 03/13/21 08:10 Sputum, Induced/Lukens Respiratory Culture - Final Presumptive C albicans 03/13/21 00:05 Blood Culture (Wb) - Left Wrist Blood Culture - Preliminary No growth in 48 hours. 03/13/21 00:06 Blood Culture (Wb) - Anticubital Left Blood Culture - Preliminary No growth in 48 hours. Physical Exam Narrative General: Generally eyes closed, sometimes effort to open on verbal command. HEENT: Pupils bilateral reactive but sluggish. ET and OG tube. Eyeball movement present. Oral: No Gingival or Mucosal Lesions/ Ulcerations Neck: Supple, No JVD, Negative Carotid Bruits Lungs: Air entry diminished in bilateral lung bases. Cardiovascular: Regular rate, Regular Rhythm, Normal S1, Normal S2, No murmurs Abdomen: Bowel Sounds Present, Soft, Non Tender, Non-Distended : No renal angle tenderness. No suprapubic tenderness. Extremities: No edema, Capillary Refill Less than 3 Seconds Skin: No rashes, No breakdown Musculoskeletal: No Tenderness to Palpation of Joints or Extremities Neurological: no spontaneous limb movement. Neuro exam limited. Gag reflex present. Psych/Mental Status: Obtunded. On life support measures Assessment & Plan Assessment/Plan (1) Acute respiratory failure: (2) Cardiac arrest: (3) Aspiration pneumonia: QUALIFIERS: Aspiration pneumonia type: unspecified Laterality: unspecified laterality Lung location: unspecified part of lung Qualified Code(s): J69.0 - Pneumonitis due to inhalation of food and vomit PLAN: This is a 71 years old female patient presented to the emergency room after she collapsed on the floor, went into asystole, status post CPR and she was found to have multiorgan failure probably due to cardiac event and found to have aspiration pneumonia, acute kidney injury, abnormal EKG with abnormal troponin. 1. cardiopulmonary arrest with acute hypoxic respiratory failure: Patient is in ICU, intubated. Animal Killer managing the vent. 2D echo EF 40% with mildly dilated LV. 03/16: On AC mode on ventilator. Wean FiO2 as per tolerated. 2.? Abnormal EKG/non-STEMI: ECG sinus tachycardia with PVCs, ST segment depression and T wave inversions in leads V3, V4 and V5, ST segment depression in leads II and III. Troponin 6.1. Corn Breeder consulted and recommended medical management. 03/16 seen by blow pit operator, treatment is expectant and supportive based on neurological recovery. 3. aspiration pneumonia: Patient vomiting during CPR probably aspirated. On IV Unasyn. Patient has OG tube and tube feeding started 4. seizure, exact type unclear but probably due to anoxic encephalopathy:EEG showed background of brief bursts sharp waves. No status epilepticus noted. Suggestive of severe bihemispheric cerebral dysfunction. SOC recommended Depakote if breakthrough seizure or myoclonus but currently with as needed lorazepam. 5. acute kidney injury with hypophosphatemia: Most likely from cardiac arrest/ATN. Monitor intake and output. Resolved. 6.? lactic acidosis: Most likely from tissue hypoperfusion and hypoxemia. 7. Shock liver with elevated transaminases: Monitor liver chemistry test 8.? Hypokalemia:Resolved. 9. DVT prophylaxis: Subcu heparin. 10. Guarded prognosis. Neurologist recommended 72 hours for better prognostication. Total time of the visit including total time spent in counseling or coordination of care, (more than 50% of the total time, spent in obtaining medical information from nurses and other ancillary care providers,explaining to the patient about labs, imaging, diagnosis and management), discussion with the daughter and , review of labs and imaging is 30 minutes. Visit Charges Inpatient E&M: 05305 [facility] L3
[2021-03-16 08:40] LABS: Thyroid Stim Hormone (TSH) 1.97 uIU/mL (0.358-3.74)
[2021-03-16 09:27] LABS: Ammonia < 10.0 umol/L (11-32)
--- NOTE | 2021-03-16 09:50 | EX.NTREPO ---
Medical Nutrition Therapy - History Nutrition Services has been consulted to:: Manage nutrient details of diet order, Manage enteral nutrition Current diet/nutrition support order:: NPO. Vital AF 1.2 via NGT at 15mL/hour w/ 35mL H2O flush every 6 hours to provide 432 calories, 27 g protein, and 432mL fluid/day. - Anthropometric Measurements Height:: 5 ft 4.96 in Weight:: 70.9 kg Body Mass Index (BMI):: 26.0 - Relevant Labs Relevant Labs:: WBC 12.2 K/mm3 (4.4-11.0) H 03/14/21 04:25 RBC 3.59 M/mm3 (4.2-5.4) L 03/16/21 03:35 Hgb 10.6 g/dL (12.0-15.0) L 03/16/21 03:35 Hct 32.4 % (37-47) L 03/16/21 03:35 MCHC 31.4 g/dL (32-36) L 03/13/21 04:15 RDW Std Deviation 45.9 fl (35.1-43.9) H 03/16/21 03:35 Plt Count 147 K/mm3 (150-450) L 03/13/21 04:15 Immature Gran % (Auto) 1.600 % (0.0-0.9) H 03/15/21 04:46 Neut % (Auto) 87.0 % (47-70) H 03/16/21 03:35 Lymph % (Auto) 6.1 % (19-41) L 03/16/21 03:35 Absolute Neuts (auto) 8.8 X10^3/uL (2.0-7.7) H 03/16/21 03:35 Absolute Lymphs (auto) 0.62 X10^3/uL (0.83-4.51) L 03/16/21 03:35 Neutrophils % (Manual) 22 % (47-70) L 03/12/21 21:30 Band Neutrophils % 18 % (0-5) H 03/12/21 21:30 Lymphocytes % (Manual) 48 % (19-41) H 03/12/21 21:30 Myelocytes % 4 % (0-0) H 03/12/21 21:30 Promyelocytes % 1 % (0-0) H 03/12/21 21:30 Sodium 149 mmol/L (136-145) H 03/13/21 04:15 Potassium 2.3 mmol/L (3.5-5.1) L* 03/13/21 04:15 Chloride 108 mmol/L (98-107) H 03/14/21 04:25 Carbon Dioxide 19.0 mmol/L (21.0-32.0) L 03/13/21 04:15 Anion Gap 16 (5-15) H 03/12/21 21:30 Creatinine 0.50 mg/dL (0.55-1.02) L 03/13/21 04:15 Est GFR (MDRD) Af Amer 47 mL/min (>60) L 03/12/21 21:30 Est GFR (MDRD) Non-Af 38 mL/min (>60) L 03/12/21 21:30 BUN/Creatinine Ratio 22.2 RATIO (10-20) H 03/16/21 03:35 Glucose 123 mg/dL (74-106) H 03/15/21 04:46 Lactic Acid 4.9 mmol/L (0.4-1.9) H* 03/13/21 04:15 Calcium 8.0 mg/dL (8.5-10.1) L 03/15/21 04:46 Phosphorus 2.0 mg/dL (2.5-4.9) L 03/15/21 04:46 AST 164 U/L (15-37) H 03/13/21 04:15 ALT 136 U/L (13-56) H 03/13/21 04:15 Alkaline Phosphatase 41 U/L (45-117) L 03/13/21 04:15 Ammonia < 10.0 umol/L (11-32) L 03/16/21 08:55 Troponin I 6.280 ng/mL (<0.045) H* 03/13/21 04:10 Total Protein 4.1 g/dL (6.4-8.2) L 03/13/21 04:15 Albumin 2.2 g/dL (3.2-5.0) L 03/13/21 04:15 Globulin 1.9 g/dL (2.2-4.2) L 03/13/21 04:15 Cholesterol 240 mg/dL (200) H 03/13/21 01:30 LDL Cholesterol 155 mg/dL (0-130) H 03/13/21 01:30 - Assessment Food and Nutrient Intake: Trophic enteral nutrition support started yesterday via NGT. Tolerating well w/ minimal residuals per nursing staff. Per barry Hernandez to advance nutrition support as tolerated. Wt decrease of 0.3kg since last review. No BMs since admission. - Nutrition Diagnosis: Intake Problem Inadequate Oral Intake Intake Problem - Etiology: r/t respiratory failure Intake Problem - Signs/Symptoms: as evidenced by inability to consume sufficient nutrition via PO diet - Protein Calorie Malnutrition Evidence of Malnutrition Exists: No - Nutrition Intervention Nutrition Prescription: [id number] calories/day (25 kcal/kg). 70-105 g protein/day (1.0-1.5g/kg). 1700ml fluid/day (25 ml/kg) - Food / Nutrient Delivery Interventions Summary of nutrition intervention:: Order/adjust enteral nutrition Nutrition support ordered as / adjusted to:: Advance Vital AF 1.2 via NGT by 15mL every 12 hours as pt tolerates until goal rate of 60mL/hour is achieved. 100mL H2O flush every 4 hours. At goal rate, tube feeds will provide 1728 calories, 108 g protein, and 1767mL fluid/day. - MNT Monitoring Active Nutrition Patient: Yes Nutrition Status: Requires Follow Up 3-5 Days
--- NOTE | 2021-03-16 10:00 | NURSING ---
Received call from [facility] [employer], they are signing off at this time.
[2021-03-16] MEDS: Famotidine 200 MG/20 ML MDV 20 MG in 0.9% Normal Saline (Pres. free 8 ML 300 MG IV (11:31)
[2021-03-16] MEDS: Aspirin 300 MG Suppository RC (11:31)
[2021-03-16] MEDS: Labetalol (Prefilled) 20 MG/4 ML IV (11:32)
[2021-03-16 12:04] LABS: Pathologist Review Reviewed
--- NOTE | 2021-03-16 13:45 | CASEMGMT ---
According to [employer]'s website, the following tertiary facilities are in network: [facility], [place], [facility], [facility], [facility], [facility] and .
--- NOTE | 2021-03-16 14:36 | DS.PCM_ITS ---
Providers Date of Admission: 03/13/21 Primary Care Physician: Dr. Krishan Evans, DO Consultations 03/13/21 00:44 Consult: Cardiology Routine Consulting Provider: [facility] Reason for Consult: Status post CPR, EKG changes, abnormal troponin EMERGENT Consult: No Notified: Yes Date Notified:: 03/13/21 Time Notified: 00:19 Method of Notification: Verbal Comments:: Notified by ER physician Consult: Drier And Evaporator Operator / Pulmonary Medicine Routine Consulting Provider: [facility] Reason for Consult: Status post CPR EMERGENT Consult: No MD Notified: Yes Date Notified:: 03/13/21 Time Notified: 00:20 Method of Notification: Text Reason For Visit: STATUS POST CPR, LACTIC ACIDOSIS, SKI, ABN EKG Diagnosis Discharge Diagnosis (1) Acute respiratory failure: Status: Acute Code(s): J96.00 - Acute respiratory failure, unspecified whether with hypoxia or hypercapnia Medications at Discharge Home Medications NK 03/12/21 Hospital Course Summary of Care Provided Hospital Course: This is a 71 years old female patient presented to the emergency room after she collapsed on the floor, went into asystole, status post CPR and she was found to have multiorgan failure probably due to cardiac event and found to have aspiration pneumonia, acute kidney injury, abnormal EKG with abnormal troponin. Patient had multiple doses of epinephrine, AED shock, bilateral humeral IO line on field by EMS but she had pulse enroute to [facility] ED. Exact duration of CODE BLUE unclear. EMS arrived on scene about 6 hrs. and EMS arrived ED on 2112 therefore probably less than 16 minutes 1. cardiopulmonary arrest with acute hypoxic respiratory failure: Patient is in ICU, intubated. Drier And Evaporator Operator managing the ventilator. Patient on 25% Fi O2/450/5. 2D echo EF 40% with mildly dilated LV. 2. Abnormal EKG/non-STEMI: ECG sinus tachycardia with PVCs, ST segment depression and T wave inversions in leads V3, V4 and V5, ST segment depression in leads II and III. Troponin 6.1. Full Stack Java Developer consulted and recommended medical management. Patient was seen by plastics fabricator and assembler, treatment is expectant and supportive based on neurological recovery. 3. aspiration pneumonia: Patient vomiting during CPR probably aspirated. On IV Unasyn. Patient has low-grade fever. Patient has OG tube and tube feeding started 4. Acute encephalopathy with abnormal EEG: First EEG severely abnormal displaying discontinuous burst suppression pattern consisting of brief bursts of generalized sharp waves. This indicative of severe bihemispheric cerebral dysfunction. Repeat EEG also reported abnormal due to moderate to severe background slowing indicative of moderate to severe encephalopathy. MRI brain reported no evidence of anoxic brain injury. SOC neurologist recommended Depakote if breakthrough seizure or myoclonus but currently with as needed lorazepam. Subclinical seizure could not be ruled out. Patient require tertiary care 24- hour EEG monitoring. 5. acute kidney injury with hypophosphatemia: Most likely from cardiac arrest/ATN. Monitor intake and output. Resolved. 6. lactic acidosis: Most likely from tissue hypoperfusion and hypoxemia. 7. Shock liver with elevated transaminases: Monitor liver chemistry test 8. Hypokalemia:Resolved. I called [facility] for need of 24-hour EEG monitoring with neuro ICU care for patient for abnormal EEG and patient continued encephalopathic state. Clinical information from admission, ICU course, vitals, imaging findings, EEG and pertinent labs were discussed. Patient is accepted in ICU in [facility]. Accepted by ICU, nurse practitioner. Clinical Impression(s) from Imaging Studies Brain CT 03/12/21 22:51 IMPRESSION: Chronic involutional changes of the brain. Electronically Signed: Jeffry Fan DO at 23:02 EDT Tel , Service support , Chest X-Ray 03/12/21 23:00 IMPRESSION: ET tube and enteric tube are noted and adequately positioned. Patchy infiltrate in the right upper lobe suggesting infection Electronically Signed: Jeffry Fan DO at 23:46 EDT Tel , Service support , Echocardiogram 03/13/21 00:44 Interpretation Summary The estimated ejection fraction is EF 40% %. Infero-lateral Hypokinesia ____ Ordering Physician: Windy Yates Referring Physician: Krishan Evans Performed By: Abbey Hernández, QUEENIE, RVT Brain MRI 03/16/21 07:41 IMPRESSION: Involutional changes of the brain, as described above. No MR evidence of anoxic brain injury. Acute on chronic left sphenoid sinusitis per Electronically Signed: Jose Tovar MD at 11:27 EDT Tel , Service support , 9. DVT prophylaxis: Subcu heparin. 10. Guarded prognosis. Neurologist recommended 72 hours for better prognostication. Total time of the visit including total time spent in counseling or coordination of care, (more than 50% of the total time, spent in obtaining medical informa tion from nurses and other ancillary care providers,explaining to the patient about labs, imaging, diagnosis and management), discussion with the daughter and , review of labs and imaging is 30 minutes. Physical Exam Narrative Please see progress note on the same date. No significant change. Mild low- grade fever ABG / Lab / Microbiology Data Result Diagrams: 03/16/21 03:35 03/16/21 03:35 Laboratory: Laboratory Results - last 24 hr 03/12/21 03/16/21 03/16/21 21:30 03:35 03:35 WBC 10.2 RBC 3.59 L Hgb 10.6 L Hct 32.4 L MCV 90.3 MCH 29.5 MCHC 32.7 RDW Std Deviation 45.9 H RDW Coeff of [place] 13.9 Plt Count 197 MPV 11.2 Immature Gran % (Auto) 0.300 Neut % (Auto) 87.0 H Lymph % (Auto) 6.1 L [place] % (Auto) 6.0 Eos % (Auto) 0.2 Baso % (Auto) 0.4 Absolute Neuts (auto) 8.8 H Absolute Lymphs (auto) 0.62 L Nucleated RBC % 0 [address] Review Reviewed Sodium 140 Potassium 4.0 Chloride 106 Carbon Dioxide 25.0 Anion Gap 9 BUN 14 Creatinine 0.63 Estim Creat Clear Calc 44.56 Est GFR (MDRD) Af Amer 120 Est GFR (MDRD) Non-Af 99 BUN/Creatinine Ratio 22.2 H Glucose 98 Calcium 8.6 Phosphorus 2.7 Ammonia TSH 03/16/21 03/16/21 03:35 08:55 WBC RBC Hgb Hct MCV MCH MCHC RDW Std Deviation RDW Coeff of [place] Plt Count MPV Immature Gran % (Auto) Neut % (Auto) Lymph % (Auto) [place] % (Auto) Eos % (Auto) Baso % (Auto) Absolute Neuts (auto) Absolute Lymphs (auto) Nucleated RBC % Diff Path Review Sodium Potassium Chloride Carbon Dioxide Anion Gap BUN Creatinine Estim Creat Clear Calc Est GFR (MDRD) Af Amer Est GFR (MDRD) Non-Af BUN/Creatinine Ratio Glucose Calcium Phosphorus Ammonia < 10.0 L TSH 1.97 Microbiology: Microbiology 03/13/21 08:10 Sputum, Induced/Lukens Gram Stain - Final 03/13/21 08:10 Sputum, Induced/Lukens Respiratory Culture - Final Presumptive C albicans 03/13/21 00:05 Blood Culture (Wb) - Left Wrist Blood Culture - Preliminary No growth in 48 hours. 03/13/21 00:06 Blood Culture (Wb) - Anticubital Left Blood Culture - Preliminary No growth in 48 hours. Radiography Diagnostic Testing: Radiology Impression Brain MRI 03/16/21 07:41 IMPRESSION: Involutional changes of the brain, as described above. No MR evidence of anoxic brain injury. Acute on chronic left sphenoid sinusitis per Electronically Signed: Jose Tovar MD at 11:27 EDT Tel , Service support , Meaningful Use Info Meaningful Use Diagnoses (Choose all that apply): None applicable Discharge Plan Admission Admit Date/Time: 03/13/21 00:22 Attending Provider: Ricki Orlando Primary Care Provider: Krishan Evans Consulting Providers: Adriel Morales ; Maxwell Daniel ; Maria Esther Knight NP ; Lorena Carr ; Hadley Mccoy ; Jj Coyne ; Brannon Vázquez ; Harsh Guerrero ; Denny Flowers ; Hasmukh Liu ; Gayla Medina ; Gene Crook ; Eliecer Schultz ; Jason Hernández ADMINISTRATIVE LAW JUDGE ; Mamie Donahue ADMINISTRATIVE LAW JUDGE ; Regla Elizondo PA Discharge Orders/Prescriptions Prescriptions: No Action NK RF: 0 Referrals / Follow Up: Krishan Evans DO [Primary Care Provider] - Disposition Discharge Orders: Discharge Patient (Routine); Ordered 03/16/21 Ordered By: Dr. Ricki Orlando Visit Charges Inpatient E&M: 76051 [facility]
[2021-03-16 14:46] LABS: M R Staph aureus DNA By PCR Negative (Negative); Probe Check PASS; Specimen Processing Control PASS
== END 2021-03-16 18:30 | disposition home or self-care (01) | DRG 280 ==
LOC: ED 03-13 00:16 → ICU 03-13 01:48
PROVIDERS: Internal Medicine Critical Care Medicine; Admitting Provider Hospitalist; Emergency Provider Emergency Medicine; PCP Student in an Organized Health Care Education/Training Program; Visit Provider Internal Medicine
DX: I21.4 Non-ST elevation (NSTEMI) myocardial infarction (principal); J69.0 Pneumonitis due to inhalation of food and vomit; J96.01 Acute respiratory failure with hypoxia; N17.0 Acute kidney failure with tubular necrosis; K72.00 Acute and subacute hepatic failure without coma; I46.9 Cardiac arrest, cause unspecified; E87.0 Hyperosmolality and hypernatremia; G93.1 Anoxic brain damage, not elsewhere classified; E87.2 Acidosis; E83.39 Other disorders of phosphorus metabolism; E87.6 Hypokalemia; I49.3 Ventricular premature depolarization
CPT/HCPCS: 31500; 31720; 36600; 51702; 70450; 70553; 71045; 80048; 80053; 80061; 81001; 82140; 82803; 83036; 83605; 83735; 84100; 84443; 84484; 85025; 85610; 85730; 87040; 87070; 87205; 87641; 92950; 93005; 93306; 94002; 94003; 95819; 97803; 99285; A9575; J7030; J7050; Q9957; A4216; C8929; J0295; J2405; J3010; J3490